=== PATIENT | male | born 1950 | race Caucasian/White ===

== ENCOUNTER 2021-01-06 18:34 | Emergency (ER) | payer MEDICARE ==
[~2021-01-06] VITALS: Ht 182.9 cm; Wt 99.8 kg
== END 2021-01-06 20:24 | disposition home or self-care (01) ==
LOC: ER 18:34
DX: U07.1 COVID-19 (principal)
CPT/HCPCS: 96372; 99282-25; J1885

== ENCOUNTER 2021-01-08 11:43 | Emergency (ER) | payer MEDICARE ==
[~2021-01-08] VITALS: Ht 182.9 cm; Wt 99.8 kg
[2021-01-08] MEDS ORDERED: DEXA6 PO (13:22)
== END 2021-01-08 13:41 | disposition home or self-care (01) ==
LOC: ER 11:43
DX: U07.1 COVID-19 (principal)
CPT/HCPCS: 99282

== ENCOUNTER 2021-01-10 15:36 | Inpatient (IN) | payer MEDICARE ==
[~2021-01-10] VITALS: Ht 182.9 cm; Wt 86.2 kg
[~2021-01-10 15:36] MED LIST changes: -Lisinopril-Hct1 EAC4 PO
[2021-01-10 16:57] LABS: BASOPHILS ABSOLUTE AUTO 0.02 K/mm3 (0.00-0.23); BASOPHILS PERCENT AUTO 0 % (0-2); EOSINOPHILS PERCENT AUTO 0 % (0-6); Hematocrit 42.4 % (37.0-53.0); Hemoglobin 14.7 g/dL (13.5-17.5); IMMATURE GRAN ABSOLUTE AUTO 0.23 K/mm3 (0.00-0.10); IMMATURE GRAN PERCENT AUTO 2 % (0-1); LYMPHOCYTES ABSOLUTE AUTO 0.44 K/mm3 (0.84-5.20); LYMPHOCYTES PERCENT AUTO 3 % (21-46); MONOCYTES PERCENT AUTO 2 % (4-13); Mean Corpuscular HGB 31.7 pg (26.0-34.0); Mean Corpuscular HGB Conc 34.7 g/dL (31.5-36.5); Mean Corpuscular Volume 91 fL (80-100); Mean Platelet Volume 11.2 fL (9.1-12.4); NEUTROPHILS ABSOLUTE AUTO 13.37 K/mm3 (1.96-9.15); NEUTROPHILS PERCENT AUTO 93 % (41-73); Platelet Count 312 K/mm3 (150-400); RDW Coefficient Variation 12.2 % (11.7-14.2); RDW Standard Deviation 40.8 fL (35.1-46.3); Red Blood Cell Count 4.64 M/mm3 (4.30-5.90); White Blood Cell Count 14.36 K/mm3 (4.00-11.30)
[2021-01-10 17:11] LABS: International Normalized Ratio 1.05; Prothrombin Time Results 11.3 Sec (9.7-11.5)
[2021-01-10 17:14] LABS: Alanine Aminotransfer (ALT/SGP 64 U/L (12-78); Albumin, Blood 3.4 g/dL (3.4-5.0); Albumin/Globulin Ratio 0.8 (0.8-1.8); Alk Phos 66 U/L (50-136); Anion Gap 7 mmol/L (6-16); Aspartate Aminotrans (AST/SGOT 38 U/L (12-37); Bilirubin, Total 0.7 mg/dL (0.1-1.0); Blood Urea Nitrogen 37 mg/dL (8-24); Bun/Creatinine Ratio 36.6 (12.0-20.0); CO2, Blood 26 mmol/L (21-32); Calcium, Blood 9.4 mg/dL (8.5-10.1); Chloride, Blood 102 mmol/L (98-108); Creatinine, Blood 1.01 mg/dL (0.60-1.20); Glomerular Filtration Rate >60 (60-); Glucose, Blood 145 mg/dL (70-99); Sodium, Blood 135 mmol/L (136-145); Total Protein, Blood 7.4 g/dL (6.4-8.2); Troponin I <0.015 ng/mL (0.000-0.040)
[2021-01-10 17:26] LABS: BAND PERCENT MAN 100 % (0-8); BASOPHILS PERCENT MAN 0 % (0-2); EOSINOPHILS PERCENT MAN 0 % (0-6); MONOCYTES PERCENT MAN 0 % (4-13); NEUTROPHILS ABSOLUTE MAN 14.36 K/mm3 (1.96-9.15); TOTAL CELLS COUNTED 1
[2021-01-10] MEDS ORDERED: Lisinopril-Hct1 EAC4 PO (18:35)
[2021-01-10 21:42] LABS: Ferritin, Serum 3453 ng/mL (26-388)
--- NOTE | 2021-01-11 06:41 | NUR ---
Pt admitted for COVID at approx 0030, pt is on 6L O2 via NC. VSS, denies pain, calls appropriatly
--- NOTE | 2021-01-11 18:08 | NUR ---
SHIFT SUMMARY PT REQUIRING INCREASED OXYGEN. MAINTAINING SATURATIONS IN LOW 90S. ENCOURAGED TO SWITCH POSITIONS IN BED EVERY 2 HOURS TOLERATED. NO COMPLAINTS OF PAIN. ALERT AND ORIENTED AND ABLE TO MAKE NEEDS KNOWN. AMBULATES IN ROOM INDEPENDENTLY.
--- NOTE | 2021-01-12 03:54 | NUR ---
transfer report from Kourtney Bishop on 70 year old MAle admitted yesterday with covid 19 pneumonia hypoxia. on nonrebreather for hypoxia. Tolerating clear liquids per report. Special droplet contact isolation for covid 19.
--- NOTE | 2021-01-12 04:14 | NUR ---
CHANGE OF HAND REPORT: AOX3, ILL APPEARING. DYPNEIC WITH SLIGHT MOVEMENT. NR AT 13 LITERS TO START NOW IS MAXED OUT. HAS TO REMAIN PRONE OR ON SIDE TO KEEP SATS AT 89-91%. COUGH WITH OCCATIONAL PRODUCTION. LS CRACKLES AND RALES IN THE BASES. IV ABX STARTED PER ORDERS. BODY ACHES. ABLE TO USE URINAL AT BEDSIDE WITH MILD DESATS, RECOVERS IN 1-2 MINUTES. REPORT GIVEN TO TRICIA ADLER WHO WILL BE TAKING OVER CARE.
[2021-01-12 05:27] LABS: BASOPHILS ABSOLUTE AUTO 0.05 K/mm3 (0.00-0.23); BASOPHILS PERCENT AUTO 0 % (0-2); EOSINOPHILS PERCENT AUTO 0 % (0-6); Hematocrit 45.2 % (37.0-53.0); Hemoglobin 15.3 g/dL (13.5-17.5); IMMATURE GRAN ABSOLUTE AUTO 0.51 K/mm3 (0.00-0.10); IMMATURE GRAN PERCENT AUTO 3 % (0-1); LYMPHOCYTES ABSOLUTE AUTO 0.75 K/mm3 (0.84-5.20); LYMPHOCYTES PERCENT AUTO 4 % (21-46); MONOCYTES ABSOLUTE AUTO 0.31 K/mm3 (0.16-1.47); MONOCYTES PERCENT AUTO 2 % (4-13); Mean Corpuscular HGB 31.2 pg (26.0-34.0); Mean Corpuscular HGB Conc 33.8 g/dL (31.5-36.5); Mean Corpuscular Volume 92 fL (80-100); Mean Platelet Volume 10.7 fL (9.1-12.4); NEUTROPHILS ABSOLUTE AUTO 15.69 K/mm3 (1.96-9.15); NEUTROPHILS PERCENT AUTO 91 % (41-73); Platelet Count 338 K/mm3 (150-400); RDW Coefficient Variation 12.3 % (11.7-14.2); RDW Standard Deviation 41.7 fL (35.1-46.3); Red Blood Cell Count 4.91 M/mm3 (4.30-5.90); White Blood Cell Count 17.31 K/mm3 (4.00-11.30)
[2021-01-12 06:25] LABS: Alanine Aminotransfer (ALT/SGP 54 U/L (12-78); Albumin, Blood 2.9 g/dL (3.4-5.0); Albumin/Globulin Ratio 0.7 (0.8-1.8); Alk Phos 70 U/L (50-136); Anion Gap 6 mmol/L (6-16); Aspartate Aminotrans (AST/SGOT 28 U/L (12-37); Bilirubin, Total 0.8 mg/dL (0.1-1.0); Blood Urea Nitrogen 32 mg/dL (8-24); Bun/Creatinine Ratio 34.2 (12.0-20.0); CO2, Blood 26 mmol/L (21-32); Calcium, Blood 9.4 mg/dL (8.5-10.1); Chloride, Blood 106 mmol/L (98-108); Creatinine, Blood 0.94 mg/dL (0.60-1.20); Globulin, Blood 4.2 g/dL (2.2-4.0); Glomerular Filtration Rate >60 (60-); Glucose, Blood 99 mg/dL (70-99); Potassium, Blood 4.1 mmol/L (3.5-5.5); Sodium, Blood 138 mmol/L (136-145); Total Protein, Blood 7.1 g/dL (6.4-8.2)
--- NOTE | 2021-01-12 06:40 | NUR ---
PT with covid 19 admitted for hypoxia, covid 19 care. PT on 15l oximizer & he had epitaxis, humidity applied with helpful effect. has covid 19 & is in room 327.
--- NOTE | 2021-01-12 19:09 | NUR ---
PATIENT IS ALERT AND ORIENTED. ON AIRVO 50L 60% FI02. PATIENT TOLERATES PRONING. PATIENT CALLS APPROPRIATELY. REPORT GIVEN TO ONCOMING RN.
--- NOTE | 2021-01-13 02:46 | NUR ---
70 year old Male with Covid 19 continues to need airvo heated high flow oxygen to get sats greater than 90%. He is currently prone positioning to increase oxygenation. He is on remdesiver IV & had steroid. Has boixx and sats 85 to 92%. Full code status, also has been hospitalized with covid 19 with covid pneumonia. Had nosebleed recently none this shift. Medicated for gen pain with helpful effect.
--- NOTE | 2021-01-13 04:09 | NUR ---
PT with covid 19 desatting at rest on airvo, nonrebreather added by RT Tye.current sats 90% via bioxx with airvo and nonrebreather.
[2021-01-13 05:25] LABS: BASOPHILS ABSOLUTE AUTO 0.04 K/mm3 (0.00-0.23); BASOPHILS PERCENT AUTO 0 % (0-2); EOSINOPHILS ABSOLUTE AUTO 0.02 K/mm3 (0.00-0.68); EOSINOPHILS PERCENT AUTO 0 % (0-6); Hematocrit 40.3 % (37.0-53.0); Hemoglobin 14.1 g/dL (13.5-17.5); IMMATURE GRAN ABSOLUTE AUTO 0.52 K/mm3 (0.00-0.10); IMMATURE GRAN PERCENT AUTO 4 % (0-1); LYMPHOCYTES PERCENT AUTO 4 % (21-46); MONOCYTES ABSOLUTE AUTO 0.29 K/mm3 (0.16-1.47); MONOCYTES PERCENT AUTO 2 % (4-13); Mean Corpuscular HGB 31.6 pg (26.0-34.0); Mean Corpuscular Volume 90 fL (80-100); Mean Platelet Volume 11.1 fL (9.1-12.4); NEUTROPHILS PERCENT AUTO 89 % (41-73); Platelet Count 307 K/mm3 (150-400); Red Blood Cell Count 4.46 M/mm3 (4.30-5.90); White Blood Cell Count 12.47 K/mm3 (4.00-11.30)
[2021-01-13 05:46] LABS: Anion Gap 5 mmol/L (6-16); Blood Urea Nitrogen 21 mg/dL (8-24); Bun/Creatinine Ratio 30.3 (12.0-20.0); CO2, Blood 26 mmol/L (21-32); Chloride, Blood 107 mmol/L (98-108); Creatinine, Blood 0.69 mg/dL (0.60-1.20); Glomerular Filtration Rate >60 (60-); Glucose, Blood 113 mg/dL (70-99); Sodium, Blood 138 mmol/L (136-145)
--- NOTE | 2021-01-13 19:29 | NUR ---
SHIFT SUMMARY: PT A/O X 3. PT IS NOW ON AIRVO 60 LPM FIO2 85%. NON REBREATHER MASK REMOVED AND SATS ARE IN THE LOW 90'S. NO ACUTE CHANGES THIS SHIFT.
--- NOTE | 2021-01-14 04:23 | NUR ---
SHIFT SUMMARY NO ACUTE CHANGES TO REPORT THIS SHIFT, PT HAS RESTED MOST OF THE NIGHT. PT REMAINS ON HEATED ON HIGH FLOW WITH NONREBREATHER. SETTINGS PER RT, SATS IN THE 90'S. SOB WITH EXERTION AND SOME AT REST. PT WITH PRODUCTIVE COUGH, MEDICATED PER EMAR. PT A/OX4, INDEPENDENT IN THE ROOM. BED IN LOWEST POSITION, CALL LIGHT WITHIN REACH.
[2021-01-14 06:22] LABS: BASOPHILS ABSOLUTE AUTO 0.07 K/mm3 (0.00-0.23); BASOPHILS PERCENT AUTO 0 % (0-2); EOSINOPHILS ABSOLUTE AUTO 0.06 K/mm3 (0.00-0.68); EOSINOPHILS PERCENT AUTO 0 % (0-6); Hematocrit 40.8 % (37.0-53.0); Hemoglobin 14.1 g/dL (13.5-17.5); IMMATURE GRAN PERCENT AUTO 5 % (0-1); LYMPHOCYTES ABSOLUTE AUTO 0.62 K/mm3 (0.84-5.20); LYMPHOCYTES PERCENT AUTO 4 % (21-46); MONOCYTES ABSOLUTE AUTO 0.35 K/mm3 (0.16-1.47); MONOCYTES PERCENT AUTO 2 % (4-13); Mean Corpuscular HGB 31.5 pg (26.0-34.0); Mean Corpuscular HGB Conc 34.6 g/dL (31.5-36.5); Mean Corpuscular Volume 91 fL (80-100); Mean Platelet Volume 10.8 fL (9.1-12.4); NEUTROPHILS ABSOLUTE AUTO 14.56 K/mm3 (1.96-9.15); NEUTROPHILS PERCENT AUTO 88 % (41-73); Platelet Count 331 K/mm3 (150-400); RDW Coefficient Variation 12.1 % (11.7-14.2); RDW Standard Deviation 40.6 fL (35.1-46.3); Red Blood Cell Count 4.48 M/mm3 (4.30-5.90); White Blood Cell Count 16.56 K/mm3 (4.00-11.30)
[2021-01-14 06:40] LABS: Alanine Aminotransfer (ALT/SGP 43 U/L (12-78); Albumin, Blood 2.3 g/dL (3.4-5.0); Albumin/Globulin Ratio 0.6 (0.8-1.8); Alk Phos 87 U/L (50-136); Anion Gap 4 mmol/L (6-16); Aspartate Aminotrans (AST/SGOT 31 U/L (12-37); Bilirubin, Total 0.7 mg/dL (0.1-1.0); Blood Urea Nitrogen 21 mg/dL (8-24); Bun/Creatinine Ratio 31.7 (12.0-20.0); CO2, Blood 24 mmol/L (21-32); Calcium, Blood 9.1 mg/dL (8.5-10.1); Chloride, Blood 110 mmol/L (98-108); Creatinine, Blood 0.66 mg/dL (0.60-1.20); Globulin, Blood 3.7 g/dL (2.2-4.0); Glomerular Filtration Rate >60 (60-); Glucose, Blood 101 mg/dL (70-99); Potassium, Blood 4.7 mmol/L (3.5-5.5); Sodium, Blood 138 mmol/L (136-145)
--- NOTE | 2021-01-14 07:32 | NUR ---
PT NON REBREATHER REMOVED AND AIRVO TURNED UP TO 50 LPM/85% FIO2. PT SATS ARE 91-93% AND MAINTAINING. PT JAMEL WELL AT THIS TIME.
[2021-01-14 12:19] LABS: Source, Urine Clean Catch
[2021-01-14 12:22] LABS: Appearance, Urine Clear (Clear); Bilirubin, Urine Neg (Neg); Blood, Urine Neg (Neg); Color, Urine Yellow (P-Yellow); Glucose Qualitative, Urine Neg (Neg); Ketones, Urine Neg (Neg); Leukocyte Esterase, Urine Neg (Neg); Nitrite, Urine Neg (Neg); Protein, Urine 1+ (Neg); Specific Gravity, Urine 1.015 (1.003-1.022); Urobilinogen, Urine 1+ (Normal)
--- NOTE | 2021-01-14 18:22 | NUR ---
SHIFT SUMMARY: PT A/O X3, GEN WEAKNESS. USES URINAL AT BEDSIDE. PT HAS VERY POOR APPETITE. CONTINUES TO BE ON AIRVO AT 50 LPM 85% FIO2 WITH SATS B/W 86-94%. PT HAS PRODUCTIVE COUGH. PT EDUCATED ON INCENTIVE SPIROMETER. PT VU. PT MOVED TO ROOM 308-2 AND IS IN SAME ROOM .
--- NOTE | 2021-01-15 05:31 | NUR ---
SHIFT SUMMARY PT PLACED BACK ON NON REBREATHER OVERNIGHT, PER PT REQUEST. PT REPORTS DIFFICULT TIME BREATHING. SATS REMAIN IN THE LOW 90'S OVERNIGHT. BREATHING IS LABORED AT REST AND WITH EXERTION. PT HAS AMBULATED INDEPENDENTLY TO THE BSC. A/OX4, MAKES NEEDS KNOWN. BED IN LOWEST POSITION, CALL LIGHT WITHIN REACH.
--- NOTE | 2021-01-15 05:53 | NUR ---
PT ON AIRVO WITH NON REBREATHER PT IS MAINTAINING SATS IN THE LOW 90'S BUT BREATHING IS LABORED, AND PT UNABLE TO SLEEP THIS AM. RESPIRATORY CALLED AND NOTIFIED OF THIS. THEY WILL BE BY TO EVALUATE CURRENT O2 SETTINGS.
--- NOTE | 2021-01-15 07:00 | NUR ---
NURSE CALLED TO ASSESS PT, PT NOW ON 60 L, 75% FIO2 ON AIRVO2 AND 10 L NRB SATS 95%. PT CURRENTLY ON PRONE POSITION AND JAMEL WELL.
--- NOTE | 2021-01-15 10:21 | NUR ---
REPORT FROM [facility]CRO[facility]Y BLOOD CULTURES + FOR GRAM POSITIVE COCCI. MD TO BE NOTIFIED.
[2021-01-15 10:42] LABS: BASOPHILS ABSOLUTE AUTO 0.09 K/mm3 (0.00-0.23); BASOPHILS PERCENT AUTO 1 % (0-2); EOSINOPHILS ABSOLUTE AUTO 0.15 K/mm3 (0.00-0.68); EOSINOPHILS PERCENT AUTO 1 % (0-6); Hemoglobin 14.2 g/dL (13.5-17.5); IMMATURE GRAN ABSOLUTE AUTO 1.16 K/mm3 (0.00-0.10); IMMATURE GRAN PERCENT AUTO 6 % (0-1); LYMPHOCYTES ABSOLUTE AUTO 0.43 K/mm3 (0.84-5.20); LYMPHOCYTES PERCENT AUTO 2 % (21-46); MONOCYTES ABSOLUTE AUTO 0.48 K/mm3 (0.16-1.47); MONOCYTES PERCENT AUTO 3 % (4-13); Mean Corpuscular HGB Conc 33.8 g/dL (31.5-36.5); Mean Corpuscular Volume 92 fL (80-100); Mean Platelet Volume 10.7 fL (9.1-12.4); NEUTROPHILS ABSOLUTE AUTO 15.95 K/mm3 (1.96-9.15); NEUTROPHILS PERCENT AUTO 87 % (41-73); Platelet Count 332 K/mm3 (150-400); RDW Coefficient Variation 12.3 % (11.7-14.2); RDW Standard Deviation 41.4 fL (35.1-46.3); Red Blood Cell Count 4.58 M/mm3 (4.30-5.90); White Blood Cell Count 18.26 K/mm3 (4.00-11.30)
[2021-01-15 11:21] LABS: Alanine Aminotransfer (ALT/SGP 51 U/L (12-78); Albumin, Blood 2.3 g/dL (3.4-5.0); Albumin/Globulin Ratio 0.6 (0.8-1.8); Alk Phos 119 U/L (50-136); Anion Gap 5 mmol/L (6-16); Aspartate Aminotrans (AST/SGOT 41 U/L (12-37); Bilirubin, Total 0.9 mg/dL (0.1-1.0); Blood Urea Nitrogen 24 mg/dL (8-24); Bun/Creatinine Ratio 32.7 (12.0-20.0); CO2, Blood 22 mmol/L (21-32); Chloride, Blood 109 mmol/L (98-108); Creatinine, Blood 0.73 mg/dL (0.60-1.20); Globulin, Blood 3.8 g/dL (2.2-4.0); Glomerular Filtration Rate >60 (60-); Glucose, Blood 116 mg/dL (70-99); Potassium, Blood 4.7 mmol/L (3.5-5.5); Sodium, Blood 136 mmol/L (136-145); Total Protein, Blood 6.1 g/dL (6.4-8.2)
--- NOTE | 2021-01-15 19:31 | NUR ---
SHIFT SUMMARY: PT A/O X 3, ON BEDREST AND USES URINAL AT BEDSIDE DUE TO LINES, O2 TUBING. PT CALLS APPROP. PT MAINTAINED ON AIRVO AND NON REBREATHER TODAY AND SATS RANGED BETWEEN 86-92%. PT CT NEGATIVE FOR EMBOLISM. PT FEBRILE TODAY AND TYLENOL EFFECTIVE IN TREATING FEVER. ORAL INTAKE IS MINIMAL, DRINKING ENSURES AT THIS TIME.
--- NOTE | 2021-01-15 22:41 | NUR ---
ASSUMPTION OF CARE 194: PT IS LYING IN BED, WATCHING FOOTBALL GAME ON TV. HUMIDIFIED AIR THROUGH HI-ALEKSANDR NASAL CANULA AT 60%, FiO2 92%, NON-REBREATHER MASK AT 15 LPM. POWERGLIDE IN NIDA, INFUSING. CT SCAN SHOWS TRACE BILAT PLEURAL EFFUSIONS. PT USES URINAL TO VOID INDEPENDENTLY. LUNG SOUNDS ARE COARSE ON EXHALATION. HE IS SATING 90%. DENIES PAIN OR DISCOMFORT. BED IN LOWEST POSITION, CALL LIGHT WITHIN REACH. WILL CONTINUE TO MONITOR.
--- NOTE | 2021-01-16 05:10 | NUR ---
SHIFT SUMMARRY PATIENT REMAINS ALERT AND ORIENTED. CONTINUES O2 ON ON 60L AIRVO AND 15L NONREBREATHER. O2 SATS MAINTAINED IN THE LOW 90S WITH OCCASSIONAL DESAT INTO THMID 80S. REPOSITIONING TO THE SIDES IMPROVES THE O2 SATS LEVELS. VOIDING MODERATE AMOUNTS OF YELLOW URINE IN URINAL. FAILED bm ATTEMPT IN BEDPAN STATING IT TURNS OUT TO BE GAS ONLY. NO ACUTE MEDICAL DISTRESS RTHIS SHIFT.
[2021-01-16 05:42] LABS: Hematocrit 42.5 % (37.0-53.0); Hemoglobin 14.5 g/dL (13.5-17.5); Mean Corpuscular HGB 31.5 pg (26.0-34.0); Mean Corpuscular HGB Conc 34.1 g/dL (31.5-36.5); Mean Corpuscular Volume 92 fL (80-100); Mean Platelet Volume 10.9 fL (9.1-12.4); Platelet Count 309 K/mm3 (150-400); RDW Coefficient Variation 12.1 % (11.7-14.2); RDW Standard Deviation 41.4 fL (35.1-46.3); White Blood Cell Count 18.95 K/mm3 (4.00-11.30)
[2021-01-16 06:13] LABS: BAND PERCENT MAN 1 % (0-8); BASOPHILS PERCENT MAN 0 % (0-2); EOSINOPHILS ABSOLUTE MAN 0.18 K/mm3 (0.00-0.68); EOSINOPHILS PERCENT MAN 1 % (0-6); LYMPHOCYTES ABSOLUTE MAN 0.56 K/mm3 (0.84-5.20); LYMPHOCYTES PERCENT MAN 3 % (21-46); MONOCYTES PERCENT MAN 0 % (4-13); MYELOCYTE ABSOLUTE MAN 0.37 K/mm3 (0.00-0.00); MYELOCYTE PERCENT MAN 2 % (0-0); NEUTROPHILS ABSOLUTE MAN 17.81 K/mm3 (1.96-9.15); SEG NEUTROPHILS PERCENT MAN 93 % (41-73); TOTAL CELLS COUNTED 100
[2021-01-16 06:27] LABS: Alanine Aminotransfer (ALT/SGP 48 U/L (12-78); Albumin, Blood 2.2 g/dL (3.4-5.0); Albumin/Globulin Ratio 0.6 (0.8-1.8); Alk Phos 137 U/L (50-136); Anion Gap 6 mmol/L (6-16); Aspartate Aminotrans (AST/SGOT 34 U/L (12-37); Bilirubin, Total 0.9 mg/dL (0.1-1.0); Blood Urea Nitrogen 22 mg/dL (8-24); Bun/Creatinine Ratio 30.3 (12.0-20.0); CO2, Blood 22 mmol/L (21-32); Calcium, Blood 8.8 mg/dL (8.5-10.1); Chloride, Blood 108 mmol/L (98-108); Creatinine, Blood 0.73 mg/dL (0.60-1.20); Glomerular Filtration Rate >60 (60-); Glucose, Blood 96 mg/dL (70-99); Potassium, Blood 4.6 mmol/L (3.5-5.5); Sodium, Blood 136 mmol/L (136-145); Total Protein, Blood 6.2 g/dL (6.4-8.2)
--- NOTE | 2021-01-16 16:23 | NUR ---
PT IS UNABLE TO PRONE, DOES BETTER WHEN HE IS ON HIS SIDE. ABLE TO MAINTAIN HIGH 80'S TO LOW 90'S O2. PT HAS BEEN ENCOURAGED TO DRINK NUTRITION EATING DESATS HIM TOO QUICKLY. PT ALERT AND ABLE TO EXPRESS ANY NEEDS. NO PAIN OR DISTRESS NOTED. CALL LIGHT WITHIN REACH. WCM.
[2021-01-17 05:16] LABS: Hematocrit 43.8 % (37.0-53.0); Hemoglobin 14.9 g/dL (13.5-17.5); Mean Corpuscular HGB 31.4 pg (26.0-34.0); Mean Corpuscular Volume 92 fL (80-100); Mean Platelet Volume 10.7 fL (9.1-12.4); Platelet Count 250 K/mm3 (150-400); RDW Standard Deviation 41.1 fL (35.1-46.3); Red Blood Cell Count 4.75 M/mm3 (4.30-5.90); White Blood Cell Count 28.08 K/mm3 (4.00-11.30)
[2021-01-17 05:36] LABS: BAND PERCENT MAN 6 % (0-8); BASOPHILS PERCENT MAN 0 % (0-2); EOSINOPHILS ABSOLUTE MAN 0.28 K/mm3 (0.00-0.68); EOSINOPHILS PERCENT MAN 1 % (0-6); LYMPHOCYTES ABSOLUTE MAN 0.56 K/mm3 (0.84-5.20); LYMPHOCYTES PERCENT MAN 2 % (21-46); MONOCYTES ABSOLUTE MAN 0.28 K/mm3 (0.16-1.47); MONOCYTES PERCENT MAN 1 % (4-13); MYELOCYTE ABSOLUTE MAN 0.56 K/mm3 (0.00-0.00); MYELOCYTE PERCENT MAN 2 % (0-0); NEUTROPHILS ABSOLUTE MAN 26.39 K/mm3 (1.96-9.15); SEG NEUTROPHILS PERCENT MAN 88 % (41-73); TOTAL CELLS COUNTED 100
[2021-01-17 05:46] LABS: Alanine Aminotransfer (ALT/SGP 35 U/L (12-78); Albumin, Blood 2.2 g/dL (3.4-5.0); Albumin/Globulin Ratio 0.5 (0.8-1.8); Alk Phos 184 U/L (50-136); Anion Gap 8 mmol/L (6-16); Aspartate Aminotrans (AST/SGOT 42 U/L (12-37); Bilirubin, Total 1.1 mg/dL (0.1-1.0); Blood Urea Nitrogen 20 mg/dL (8-24); Bun/Creatinine Ratio 28.6 (12.0-20.0); CO2, Blood 24 mmol/L (21-32); Calcium, Blood 9.4 mg/dL (8.5-10.1); Chloride, Blood 104 mmol/L (98-108); Globulin, Blood 4.3 g/dL (2.2-4.0); Glomerular Filtration Rate >60 (60-); Glucose, Blood 102 mg/dL (70-99); Potassium, Blood 4.7 mmol/L (3.5-5.5); Sodium, Blood 136 mmol/L (136-145); Total Protein, Blood 6.5 g/dL (6.4-8.2)
--- NOTE | 2021-01-17 07:17 | NUR ---
PATIENT HAD MULTIPLE EPISODES OF DESATTING IN 80S WITH SLOW RECOVERY BACK INTO THE 90S. O2SATS DROPPED IN TO THE THIS MORNING. RT NOTIFIED . BIPAP ORDERED AND IN USE. O2 SAT AT 90% ON BIPAP AT 100% OXYGEN WITH PATIENT IN PRONE POSITION.
[2021-01-17 08:28] LABS: PCO2 Arterial 32.8 mmHg (35-45); PO2 Arterial 53.2 mmHg (80-100); pH Blood Arterial 7.49 (7.35-7.45)
--- NOTE | 2021-01-17 10:14 | NUR ---
0855 TO PRESENT: PT EMERGENTLY TRANSFERED TO ICU FOR RESPIRATORY DISTRESS (COVID+) PO2-50'S PER ABG DRAWN JUST PRIOR TO TRANSPORT TO ICU. PT ARRIVES TO ICU IN PRONE POSITION-SATS64% ON BIPAP. PT IS TACHYPNEIC-SKIN MOTTLED. HR 130'S SINUS TACHYCARDIA. DR. SNOW SUMMED TO BEDSIDE FOR CRITICAL CARE CONSULTATION. PT ROBERTA NOTIFIED AND VERBAL CONSENT GIVEN FOR EMERGENT ETT AND CENTRAL LINE PLACEMENT @ 0900.0905: #18 PIV STARTED TO LEFT WRIST-NS @ 100 CC/HR INITIATED PER V.O. DR. SNOW @ 0913. 0915: PT MED WITH 120 MG OF PROPOFOL BY DR. SNOW FOR RSI. 0916: PT MED WITH ROCURONIUM 50 MG IVP X 1 FOR RSI. 0917: 8.0 ETT PLACED/ 26 @ LIP-GOOD COLOR CHANGE ON CO2 DETECTOR, AND BILATERAL LUNG SOUNDS AUSCULTATED, BUT SATS TO 30% 0930: PROPOFOL DRIP INITIATED @ 20 MCG/KG/HR AND BILATERAL SOFT WRIST RESTRAINTS PLACED TO PREVENT ACCIDENTAL EXTUBATION. 0932: PT BOLUSED WITH ADDITIONAL [address]P [address]. SNOW, AND PROPOFOL DRIP INCREASED TO 50 MCG/KG/MIN. 0935: PT ASYNCHRONOUS WITH THE VENT-MED WITH ATIVAN 2 MG IVP X 1. SATS TRENDING 88-90% ON AC/VC 24, 450, PEEP 20, FIO2 100% 1000: RIJ QUAD LUMEN CENTRAL LINE PLACED. #18 FR OGT PLACED. STAT CXR ORDERED ETT, OGT, AND RIJ PLACEMENT ADEQUATE PER DR. SNOW. #16 FR SHABAZZ PLACED AND U/A SENT PER SHABAZZ INSERTION PROTOCOL.
[2021-01-17 10:34] LABS: Source, Urine Catheter
[2021-01-17 10:56] LABS: Appearance, Urine Clear (Clear); Bilirubin, Urine Neg (Neg); Blood, Urine 1+ (Neg); Color, Urine Yellow (P-Yellow); Glucose Qualitative, Urine Neg (Neg); Ketones, Urine 1+ (Neg); Leukocyte Esterase, Urine Neg (Neg); Nitrite, Urine Neg (Neg); Protein, Urine 2+ (Neg); Specific Gravity, Urine 1.025 (1.003-1.022); Urobilinogen, Urine NORM (Normal)
[2021-01-17 11:36] LABS: Amorphous Light (0-Heavy); Bacteria Few /hpf; Squamous Epithelial Cells Few /hpf (Few); White Blood Cells, Urine 0-2 /hpf (0-5)
--- NOTE | 2021-01-17 18:59 | NUR ---
SHIFT SUMMARY PT DOING WELL SINCE MOVE TO ICU AND INTUBATION. VENT SETTINGS AC/VC 24/450/18/85, SATS >92%. SR 80S. SBP 87, MAP >65. PT HAS CL TO RIGHT IJ WITH LEVO INF @ 7MCG, PROPOFOL INF @ 60MCG, NIMBEX INF @ 2MCG. SITE WNL, DRESSING C/D/I. POWERGLIDE TO NIDA, SITE WNL, DRESSING C/E/I. 18G TO LEFT WRIST, SL, SITE WNL, DRESSING C/D/I. SHABAZZ DRAINING CLOUDY DARK YELLOW URINE. SKIN PALE, OFTEN DIAPHORETIC. ABD SOFT AND NONTENDER. OG SECURE AND CLAMPED. BILATERAL SOFT WRIST RESTRAINTS SECURE. BIS MONITORING 40-60. TRAIN OF 4 OF 4. EXT FLOATED, HEEL PROTECTORS IN PLACE. WILL REPORT TO ONCOMING SHIFT.
[2021-01-18 04:05] LABS: Hematocrit 41.3 % (37.0-53.0); Hemoglobin 13.1 g/dL (13.5-17.5); Mean Corpuscular HGB Conc 31.7 g/dL (31.5-36.5); Mean Platelet Volume 10.9 fL (9.1-12.4); Platelet Count 264 K/mm3 (150-400); RDW Coefficient Variation 12.5 % (11.7-14.2); RDW Standard Deviation 44.7 fL (35.1-46.3); Red Blood Cell Count 4.23 M/mm3 (4.30-5.90); White Blood Cell Count 33.94 K/mm3 (4.00-11.30)
[2021-01-18 04:42] LABS: Alanine Aminotransfer (ALT/SGP 27 U/L (12-78); Albumin, Blood 1.6 g/dL (3.4-5.0); Albumin/Globulin Ratio 0.4 (0.8-1.8); Alk Phos 108 U/L (50-136); Anion Gap 3 mmol/L (6-16); Aspartate Aminotrans (AST/SGOT 24 U/L (12-37); Bilirubin, Total 0.4 mg/dL (0.1-1.0); Blood Urea Nitrogen 20 mg/dL (8-24); Bun/Creatinine Ratio 25.7 (12.0-20.0); CO2, Blood 28 mmol/L (21-32); Calcium, Blood 8.6 mg/dL (8.5-10.1); Chloride, Blood 108 mmol/L (98-108); Creatinine, Blood 0.78 mg/dL (0.60-1.20); Globulin, Blood 4.3 g/dL (2.2-4.0); Glomerular Filtration Rate >60 (60-); Glucose, Blood 149 mg/dL (70-99); Potassium, Blood 4.9 mmol/L (3.5-5.5); Sodium, Blood 139 mmol/L (136-145); Total Protein, Blood 5.9 g/dL (6.4-8.2)
[2021-01-18 04:43] LABS: C-REACTIVE PROTEIN, EXT RANGE >19.000 mg/dL (0.000-0.300); Mean Corpuscular Volume 98 fL (80-100)
[2021-01-18 05:23] LABS: BAND PERCENT MAN 3 % (0-8); BASOPHILS PERCENT MAN 0 % (0-2); EOSINOPHILS PERCENT MAN 0 % (0-6); METAMYELOCYTE ABSOLUTE MAN 0.67 K/mm3 (0.00-0.00); METAMYELOCYTE PERCENT MAN 2 % (0-0); MONOCYTES ABSOLUTE MAN 1.01 K/mm3 (0.16-1.47); MONOCYTES PERCENT MAN 3 % (4-13); MYELOCYTE ABSOLUTE MAN 1.01 K/mm3 (0.00-0.00); MYELOCYTE PERCENT MAN 3 % (0-0); NEUTROPHILS ABSOLUTE MAN 31.22 K/mm3 (1.96-9.15); SEG NEUTROPHILS PERCENT MAN 89 % (41-73); TOTAL CELLS COUNTED 100
[2021-01-18 05:50] LABS: PCO2 Arterial 60.6 mmHg (35-45); PO2 Arterial 102 mmHg (80-100)
[2021-01-18 05:51] LABS: pH Blood Arterial 7.26 (7.35-7.45)
--- NOTE | 2021-01-18 06:34 | NUR ---
END OF SHIFT NIMBEX INCREASED DUE TO PT NOTED TO BE BREATHING OVER VENT- GTTS AND GTT RATES NOTED IN FLOWSHEET. CRITICAL PH REPORTED TO MD-RN SUGGEST INCREASE RATE- NO NEW ORDERS FROM MD. BAKERY PASTRY INTERNSHIP AWARE. PT REMAINS IN PRONE POSITION-PARALYZED/SEDATED/ON VENT SEE OVERNIGHT ASSESSMENTS IN FLOWSHEET.
--- NOTE | 2021-01-18 06:54 | NUR ---
BIS 45-60 OVERNIGHT
--- NOTE | 2021-01-18 13:22 | NUR ---
PT WAS SUPINE AT ABOUT 1200 SEDATION WEARN DOWN, TUBE FEEDING STARTED PER MD ORDERS. WILL CONTINUE TO MONITOR FOR SAFETY.
--- NOTE | 2021-01-18 18:55 | NUR ---
PT CONTINUE TO REMAIN ON THE VENT, PARLALYZED ON PROPFOL AND LEVO ON A LOW RATE WITH GOOD URINE OUTPUT. JAH WAS UPDATED WITH PLAN OF CARE.
[2021-01-19 03:50] LABS: Hemoglobin 12.1 g/dL (13.5-17.5); Mean Corpuscular HGB 31.1 pg (26.0-34.0); Mean Corpuscular Volume 100 fL (80-100); Mean Platelet Volume 11.2 fL (9.1-12.4); Platelet Count 211 K/mm3 (150-400); RDW Standard Deviation 48.2 fL (35.1-46.3); Red Blood Cell Count 3.89 M/mm3 (4.30-5.90); White Blood Cell Count 17.09 K/mm3 (4.00-11.30)
[2021-01-19 04:13] LABS: Albumin, Blood 1.4 g/dL (3.4-5.0); Anion Gap 1 mmol/L (6-16); Blood Urea Nitrogen 26 mg/dL (8-24); Bun/Creatinine Ratio 35.6 (12.0-20.0); CO2, Blood 29 mmol/L (21-32); Calcium, Blood 8.1 mg/dL (8.5-10.1); Chloride, Blood 109 mmol/L (98-108); Creatinine, Blood 0.73 mg/dL (0.60-1.20); Glomerular Filtration Rate >60 (60-); Glucose, Blood 172 mg/dL (70-99); Magnesium, Blood 3.1 mg/dL (1.6-2.4); Phosphorus, Blood 2.5 mg/dL (2.5-4.9); Potassium, Blood 5.1 mmol/L (3.5-5.5); Sodium, Blood 139 mmol/L (136-145)
[2021-01-19 04:49] LABS: BAND PERCENT MAN 1 % (0-8); BASOPHILS PERCENT MAN 0 % (0-2); EOSINOPHILS ABSOLUTE MAN 0.17 K/mm3 (0.00-0.68); EOSINOPHILS PERCENT MAN 1 % (0-6); LYMPHOCYTES ABSOLUTE MAN 0.17 K/mm3 (0.84-5.20); LYMPHOCYTES PERCENT MAN 1 % (21-46); MONOCYTES ABSOLUTE MAN 0.68 K/mm3 (0.16-1.47); MONOCYTES PERCENT MAN 4 % (4-13); NEUTROPHILS ABSOLUTE MAN 16.06 K/mm3 (1.96-9.15); SEG NEUTROPHILS PERCENT MAN 93 % (41-73); TOTAL CELLS COUNTED 100
--- NOTE | 2021-01-19 06:54 | NUR ---
END OF SHIFT SUMMARY: PATIENT HAD A GOOD NIGHT. HE WAS PRONED AT 1999 AND DID VERY WELL. VENT SETTINGS HAVE BEEN UNCHANGED BUT WE WERE ABLE TO COME DOWN TO 60% FROM 85% WITH HIS FI02. GOOD URINE OUTPUT. NO RESTAINTS ON PATIENT. REMAINS INTUBATED/SEDATED.
--- NOTE | 2021-01-19 22:41 | NUR ---
ASSUMED CARE AT 1900 PT LAYING IN BED INTUBATED WITH VENT SETTINGS AC 24, TV 450, PEEP 16, FIO2 70%; SCANT AMOUNT OF SECREATIONS FROM ETT. PT PARALIZED AND SEDATED; ROCURONIUM INFUSING AT 3MCG/KG/MIN, TOF 4/4; PROPOFOL INFUSING AT 40MCG/KG/MIN, BIS 40'S. AFEBRILE. HR 100'S. SBP 140'S. PIVOT INFUSING VIA OG AT GOAL. SHABAZZ IN PLACE AND DRAINING TO GRAVITY. SEE SHIFT ASSESSMENT FOR FULL ASSESSMENT.
--- NOTE | 2021-01-20 03:12 | NUR ---
UPDATE AT [address] MARCIAL REGARDING SBP 160-180'S; NEW ORDERS FOR HYDROLAZINE 10-20MG Q6HR PRN PROVIDED. TWO DOSES OF 10MG OF HYDROLAZINE GIVEN AND SBP CONT TO BE >160. DR MARTINEZ CALLED AT 0145 REGARDING SBP, NEW ORDERS PROVIDED FOR LABETALOL 10-20MG PRN Q6HR. 10MG OF LABETALOL GIVEN AND HELPFUL BRINGING SBP TO 120'S.
[2021-01-20 04:22] LABS: BASOPHILS ABSOLUTE AUTO 0.12 K/mm3 (0.00-0.23); BASOPHILS PERCENT AUTO 1 % (0-2); EOSINOPHILS ABSOLUTE AUTO 0.01 K/mm3 (0.00-0.68); EOSINOPHILS PERCENT AUTO 0 % (0-6); Hematocrit 42.6 % (37.0-53.0); Hemoglobin 12.8 g/dL (13.5-17.5); IMMATURE GRAN ABSOLUTE AUTO 1.66 K/mm3 (0.00-0.10); IMMATURE GRAN PERCENT AUTO 8 % (0-1); LYMPHOCYTES ABSOLUTE AUTO 0.46 K/mm3 (0.84-5.20); LYMPHOCYTES PERCENT AUTO 2 % (21-46); MONOCYTES ABSOLUTE AUTO 0.76 K/mm3 (0.16-1.47); MONOCYTES PERCENT AUTO 4 % (4-13); Mean Corpuscular Volume 103 fL (80-100); Mean Platelet Volume 11.1 fL (9.1-12.4); NEUTROPHILS ABSOLUTE AUTO 17.46 K/mm3 (1.96-9.15); NEUTROPHILS PERCENT AUTO 85 % (41-73); Platelet Count 225 K/mm3 (150-400); RDW Coefficient Variation 13.4 % (11.7-14.2); RDW Standard Deviation 51.5 fL (35.1-46.3); Red Blood Cell Count 4.13 M/mm3 (4.30-5.90); White Blood Cell Count 20.47 K/mm3 (4.00-11.30)
[2021-01-20 04:43] LABS: Albumin, Blood 1.6 g/dL (3.4-5.0); Anion Gap 2 mmol/L (6-16); Blood Urea Nitrogen 38 mg/dL (8-24); CO2, Blood 29 mmol/L (21-32); CPK Creatine Kinase 37 U/L (39-308); Chloride, Blood 109 mmol/L (98-108); Creatinine, Blood 0.75 mg/dL (0.60-1.20); Glomerular Filtration Rate >60 (60-); Glucose, Blood 228 mg/dL (70-99); Magnesium, Blood 3.2 mg/dL (1.6-2.4); Phosphorus, Blood 2.8 mg/dL (2.5-4.9); Potassium, Blood 5.2 mmol/L (3.5-5.5); Sodium, Blood 140 mmol/L (136-145)
[2021-01-20 04:46] LABS: BAND PERCENT MAN 4 % (0-8); BASOPHILS PERCENT MAN 0 % (0-2); EOSINOPHILS PERCENT MAN 0 % (0-6); LYMPHOCYTES PERCENT MAN 1 % (21-46); METAMYELOCYTE PERCENT MAN 2 % (0-0); MONOCYTES ABSOLUTE MAN 0.81 K/mm3 (0.16-1.47); MONOCYTES PERCENT MAN 4 % (4-13); MYELOCYTE PERCENT MAN 1 % (0-0); NEUTROPHILS ABSOLUTE MAN 18.83 K/mm3 (1.96-9.15); SEG NEUTROPHILS PERCENT MAN 88 % (41-73); TOTAL CELLS COUNTED 100
--- NOTE | 2021-01-20 06:12 | NUR ---
END OF SHIFT SUMMARY PT CONT TO BE INTUBATED WITH VENT SETTINGS AC 24, TV 450, PEEP 16, FIO2 70%; SCANT AMOUNT OF SECREATIONS FROM ETT. PT PARALIZED AND SEDATED; NIMBEX INFUSING AT 3MCG/KG/MIN, TOF 4/4; PROPOFOL INFUSING AT 40MCG/KG/MIN, BIS 40-50'S. HR 90-100. SBP 110-180, SEE PREVIOUS NOTE REGARDING HTN. PIVOT INFUSING VIA OG. RECTAL TUBE PLACED THIS SHIFT DUE TO LARGE LOOSE STOOL. SHABAZZ IN PLACE AND DRAINING TO GRAVITY. NS INFUSING AT 100ML/HR. RT IJ CENTRAL LINE DRESSING C/D/I. WILL REPORT TO AM RN WHEN AVAILABLE.
[2021-01-20 12:31] LABS: PCO2 Arterial 67.6 mmHg (35-45); PO2 Arterial 63.6 mmHg (80-100)
[2021-01-20 12:32] LABS: pH Blood Arterial 7.26 (7.35-7.45)
--- NOTE | 2021-01-20 22:29 | NUR ---
ASSUMED CARE AT 1900 PT LAYING IN BED INTUBATED WITH VENT SETTINGS AC 24/450/14/70%; SMALL AMOUNT OF ETT SECREATIONS. PT INTUBATED AND PARALIZED; NIMBEX TITRATED FROM 2 TO 3MCG/KG/MIN DUE TO FO2 4/4 AND HAVING A COUGH/GAG AND RR 30'S; PROPOFOL INFUSING AT 40MCG/KG/MIN, BIS 40'S. AFEBRILE. HR 80-90'S. SBP 140-150. PIVOT INFUSING AT GOAL VIA OG. RECTAL TUBE AND SHABAZZ IN PLACE AND DRAINING TO GRAVITY. RT IJ CENTRAL LINE DRESSING C/D/I. SEE SHIFT ASSESSMENT FOR FULL ASSESSMENT.
[2021-01-21 03:54] LABS: BASOPHILS ABSOLUTE AUTO 0.18 K/mm3 (0.00-0.23); BASOPHILS PERCENT AUTO 1 % (0-2); EOSINOPHILS ABSOLUTE AUTO 0.05 K/mm3 (0.00-0.68); EOSINOPHILS PERCENT AUTO 0 % (0-6); Hematocrit 41.5 % (37.0-53.0); Hemoglobin 12.4 g/dL (13.5-17.5); IMMATURE GRAN ABSOLUTE AUTO 1.82 K/mm3 (0.00-0.10); IMMATURE GRAN PERCENT AUTO 9 % (0-1); LYMPHOCYTES ABSOLUTE AUTO 0.45 K/mm3 (0.84-5.20); LYMPHOCYTES PERCENT AUTO 2 % (21-46); MONOCYTES ABSOLUTE AUTO 0.98 K/mm3 (0.16-1.47); MONOCYTES PERCENT AUTO 5 % (4-13); Mean Corpuscular HGB Conc 29.9 g/dL (31.5-36.5); Mean Corpuscular Volume 104 fL (80-100); Mean Platelet Volume 11.4 fL (9.1-12.4); NEUTROPHILS ABSOLUTE AUTO 16.04 K/mm3 (1.96-9.15); NEUTROPHILS PERCENT AUTO 82 % (41-73); Platelet Count 230 K/mm3 (150-400); RDW Coefficient Variation 13.5 % (11.7-14.2); RDW Standard Deviation 52.4 fL (35.1-46.3); White Blood Cell Count 19.52 K/mm3 (4.00-11.30)
[2021-01-21 04:12] LABS: Albumin, Blood 1.7 g/dL (3.4-5.0); Anion Gap 0 mmol/L (6-16); Blood Urea Nitrogen 50 mg/dL (8-24); Bun/Creatinine Ratio 61.6 (12.0-20.0); CO2, Blood 31 mmol/L (21-32); Calcium, Blood 7.9 mg/dL (8.5-10.1); Chloride, Blood 112 mmol/L (98-108); Creatinine, Blood 0.81 mg/dL (0.60-1.20); Glomerular Filtration Rate >60 (60-); Glucose, Blood 187 mg/dL (70-99); Magnesium, Blood 3.5 mg/dL (1.6-2.4); Phosphorus, Blood 2.8 mg/dL (2.5-4.9); Potassium, Blood 4.9 mmol/L (3.5-5.5); Sodium, Blood 143 mmol/L (136-145)
[2021-01-21 04:15] LABS: BAND PERCENT MAN 2 % (0-8); BASOPHILS PERCENT MAN 0 % (0-2); EOSINOPHILS PERCENT MAN 0 % (0-6); LYMPHOCYTES ABSOLUTE MAN 0.39 K/mm3 (0.84-5.20); LYMPHOCYTES PERCENT MAN 2 % (21-46); METAMYELOCYTE ABSOLUTE MAN 0.39 K/mm3 (0.00-0.00); METAMYELOCYTE PERCENT MAN 2 % (0-0); MONOCYTES ABSOLUTE MAN 0.58 K/mm3 (0.16-1.47); MONOCYTES PERCENT MAN 3 % (4-13); NEUTROPHILS ABSOLUTE MAN 18.15 K/mm3 (1.96-9.15); SEG NEUTROPHILS PERCENT MAN 91 % (41-73); TOTAL CELLS COUNTED 100
--- NOTE | 2021-01-21 05:56 | NUR ---
END OF SHIFT SUMMARY NO ACUTE EVENTS OVERNIGHT. PT CONT TO BE INTUBATED WITH VENT SETTINGS AC 24/450/14/60%. PT PARALIZED AND SEDATED; NIMBEX INFUSING AT 3MCG/KG/MIN, TOF 4/4; PROPOFOL INFUSING AT 40MCG/KG/MIN, BIS 40'S. AFEBRILE. HR 90'S. PRN HYDROLAZINE FOLLOWED BY LABETALOL GIVEN FOR HTN; AFTER LABETALOL SBP 130-150'S. PIVOT INFUSING AT GOAL VIA OG. RECTAL TUBE AND SHABAZZ IN PLACE AND DRAINING TO GRAVITY. RT IJ CENTRAL LINE DRESSING C/D/I. PT PRONED SINCE 1999. WILL REPORT TO AM RN WHEN AVAILABLE.
--- NOTE | 2021-01-21 12:40 | NUR ---
NO CHANGES IN ASSESSMENT FROM THIS AM. VSS. UPDATED BOTH DAUGHTER AND VIA PHONE.
--- NOTE | 2021-01-21 16:59 | NUR ---
AT THE 1600 ASSESSMENT THE ONLY CHANGE WAS THE MOTTLING FROM KNEES TO THE GROIN BILATERALLY. RESIDENT INFORMED. BP HAS ALSO BEEN GIVING ISSUES. BEEN PUSHING FENTANYL, HYDRALAZINE DIDNT DO ANYTHING BUT LABETOLOL WITH INCREASING OF PROPOFOL HAS BEEN HAVING AN EFFECT.
--- NOTE | 2021-01-21 18:16 | NUR ---
AT END OF SHIFT PT IS SUPINE OF 1400 WITH VENT SETTINGS AT 24/450/14/65. NIMBEX IS AT 3 AND PROPOFOL IS UP TO 60 SINCE BIS WAS LOW 50S, WITH TOF 4/4. BIS NOW AT MID 40S. PRN PAIN MEDS ORDERED AND GIVEN Q2 SHABAZZ EXCELLENT OUTPUT. NOTHING FROM RECTAL TUBE UPDATED AND DAUGHTER
--- NOTE | 2021-01-21 21:35 | NUR ---
ASSUMED CARE PATIENT LYING IN BED INTUBATED ON AC/VC 24/450/14/70% AND SEDATED ON PROPOFOL @ 40MCG/KG/MIN; NUMBEX @ 3MCG/KG/MIN. NS INF TKO AND TF AT 25ML/HR W/ 30ML Q4H FLUSHES. SHABAZZ PATENT AND DRAINING LIGHT YELLOW/CLOUDY URINE AND RECTAL TUBE PATENT AND DRAINING BROWN/LIQUID STOOL;SLIGHTLY SLUDGE LIKE IN CONSISTENCY. NO FAMILY OR BELONGINGS AT BEDSIDE. SEE NURSING ASSESSMENT FOR FURTHER ASSESSMENT.
[2021-01-22 04:53] LABS: Hematocrit 39.8 % (37.0-53.0); Hemoglobin 12.1 g/dL (13.5-17.5); Mean Corpuscular HGB Conc 30.4 g/dL (31.5-36.5); Mean Corpuscular Volume 102 fL (80-100); Platelet Count 180 K/mm3 (150-400); RDW Coefficient Variation 13.4 % (11.7-14.2); White Blood Cell Count 14.92 K/mm3 (4.00-11.30)
[2021-01-22 05:07] LABS: Albumin, Blood 1.7 g/dL (3.4-5.0); Anion Gap 0 mmol/L (6-16); Blood Urea Nitrogen 50 mg/dL (8-24); Bun/Creatinine Ratio 73.1 (12.0-20.0); CO2, Blood 34 mmol/L (21-32); Calcium, Blood 8.4 mg/dL (8.5-10.1); Chloride, Blood 112 mmol/L (98-108); Creatinine, Blood 0.68 mg/dL (0.60-1.20); Glomerular Filtration Rate >60 (60-); Glucose, Blood 164 mg/dL (70-99); Phosphorus, Blood 2.2 mg/dL (2.5-4.9); Potassium, Blood 4.4 mmol/L (3.5-5.5); Sodium, Blood 146 mmol/L (136-145); Triglycerides 364 mg/dL (30-160)
[2021-01-22 05:36] LABS: BASOPHILS PERCENT MAN 0 % (0-2); EOSINOPHILS PERCENT MAN 0 % (0-6); LYMPHOCYTES ABSOLUTE MAN 0.14 K/mm3 (0.84-5.20); LYMPHOCYTES PERCENT MAN 1 % (21-46); METAMYELOCYTE ABSOLUTE MAN 0.59 K/mm3 (0.00-0.00); METAMYELOCYTE PERCENT MAN 4 % (0-0); MONOCYTES ABSOLUTE MAN 0.44 K/mm3 (0.16-1.47); MONOCYTES PERCENT MAN 3 % (4-13); MYELOCYTE ABSOLUTE MAN 0.74 K/mm3 (0.00-0.00); MYELOCYTE PERCENT MAN 5 % (0-0); NEUTROPHILS ABSOLUTE MAN 12.98 K/mm3 (1.96-9.15); SEG NEUTROPHILS PERCENT MAN 87 % (41-73); TOTAL CELLS COUNTED 100
--- NOTE | 2021-01-22 06:44 | NUR ---
UPDATE NOTIFIED DR MARTINEZ REGARDING PHOS LAB OF 2.2 THIS AM. NEW ORDERS PROVIDED FOR SODIUM PHOS 20MM IV X1.
--- NOTE | 2021-01-22 07:01 | NUR ---
SHIFT SUMMARY PATIENT REMAINED INTUBATED AND SEDATED ON PROPOFOL 50MCG/KG/MIN AND PARALYZED W/ NIMBEX @ 3MCG/KG/MIN. TF REMAINED AT GOAL RATE OF 25ML/HR W/ MINIMAL RESIDUALS. PATIENT TOLERATED PRONING WELL WITH SPO2 IN MID TO HIGH 90'S. SBP INCREASED TO 160'S-170'S W/ MAPS IN 110'S DESPITE DILAUDID IV PUSH; 10MG LABETLOL ADMINISTERED W/ SBP DECREASING TO 110'S-120'S AND MAPS 60'S-80'S. MOTTLING WORSENED SLIGHTLY BY SPREADING FROM KNEES TO NOW ON KNEES, LEGS, AND ELBOWS. NO OTHER MAJOR CHANGES DURING SHIFT.
[2021-01-22 13:54] LABS: pH Blood Arterial 7.32 (7.35-7.45)
[2021-01-22 15:22] LABS: PCO2 Arterial 73 mmHg (35-45)
--- NOTE | 2021-01-23 06:13 | NUR ---
END OF SHIFT SUMMARY: -PATIENT DID NOT TOLERATE WEANING OFF NIMBEX, PATIENT HAD EPISODES OF STACKED BREATHING, COUGHING - NIMBEX INCREASED TO 2 OVERNIGHT (STARTED SHIFT AT 1) AND PROPOFOL INCREASED TO MAX OF 80 (STARTED SHIFT AT 60) BIS CURRENTLY 45. LAST CHECKED TOF WAS 4/4 AT 6. NO GAG REFLEX. COUGH PRESENT WITH INLINE SUCTIONING, BUT INCREASED NIMBEX HELPED PATIENT TOLERATE VENT. AMANDA CORNEAL, BLINK, AND PERRLA D/T PRONING POSITIONING. NO CHANGES MADE IN VENT SETTINGS OVERNIGHT. NO MORNING LABS WERE ORDERED. -PATIENT HAS RECTAL TUBE, NO BM SINCE 01/20 PER PREVIOUS CHARTING - POSSIBLE TO D/C? GIVEN MILK OF MAGNESIA PRN. - TOLERATING TUBE FEEDING, LOW TO NO RESIDUALS OVERNIGHT. SOFT ABDOMEN.
--- NOTE | 2021-01-23 07:23 | NUR ---
TOF-4/4 RIGHT BROW, TF-PIVOT 1.5 @25CC/HR.
[2021-01-23 09:54] LABS: Hematocrit 36.9 % (37.0-53.0); Hemoglobin 11.3 g/dL (13.5-17.5); Mean Corpuscular HGB 31.3 pg (26.0-34.0); Mean Corpuscular HGB Conc 30.6 g/dL (31.5-36.5); Mean Corpuscular Volume 102 fL (80-100); Mean Platelet Volume 11.7 fL (9.1-12.4); Platelet Count 155 K/mm3 (150-400); RDW Coefficient Variation 13.5 % (11.7-14.2); RDW Standard Deviation 51.3 fL (35.1-46.3); Red Blood Cell Count 3.61 M/mm3 (4.30-5.90); White Blood Cell Count 12.38 K/mm3 (4.00-11.30)
[2021-01-23 10:11] LABS: Triglycerides 401 mg/dL (30-160)
--- NOTE | 2021-01-23 10:33 | NUR ---
SPO2-96%, FI02 DOWN TO 85%.
[2021-01-23 10:57] LABS: BAND PERCENT MAN 1 % (0-8); BASOPHILS PERCENT MAN 0 % (0-2); EOSINOPHILS ABSOLUTE MAN 0.12 K/mm3 (0.00-0.68); EOSINOPHILS PERCENT MAN 1 % (0-6); LYMPHOCYTES ABSOLUTE MAN 0.74 K/mm3 (0.84-5.20); LYMPHOCYTES PERCENT MAN 6 % (21-46); MONOCYTES ABSOLUTE MAN 0.61 K/mm3 (0.16-1.47); MONOCYTES PERCENT MAN 5 % (4-13); MYELOCYTE ABSOLUTE MAN 0.49 K/mm3 (0.00-0.00); MYELOCYTE PERCENT MAN 4 % (0-0); NEUTROPHILS ABSOLUTE MAN 10.39 K/mm3 (1.96-9.15); SEG NEUTROPHILS PERCENT MAN 83 % (41-73); TOTAL CELLS COUNTED 100
[2021-01-23 12:01] LABS: PCO2 Arterial 82 mmHg (35-45); PO2 Arterial 65.2 mmHg (80-100)
--- NOTE | 2021-01-23 14:25 | NUR ---
PT ROBERTA UPDATED ON CURRENT STATUS.
--- NOTE | 2021-01-23 18:01 | NUR ---
Received a call from bedside RN, requesting this RN place call to pt's , as she is stating she wants to "send pt to [place]". She was initially yelling into the phone. After acknowledging her frustration and asking her if she is feeling scared about pt's condition, she began to cry, and asked me to follow up with her daughter Carole. Carole then called this RN and explained that her mom, pt's is easily excitable and has just gotten over Covid her own self. She states yesterday she and pt's were unable to get an update on pt's current condition, and it got her "extremely upset" per Carole. She no longer plans to move him. Agreed to give update to Carole tomorrow morning. Carole verbalizes understanding regarding delayed updates at times. Plan to incorporate Palliative care into giving some of the updates as well to begin building a relationship, and to assist ICU staff with phone call volume.
--- NOTE | 2021-01-23 18:33 | NUR ---
PT REMAINS INTUBATED, SEDATED AND PARALIZED. PROPOFOL INFUSING @75MCG AND NIMBEX INFUSING AT 1.5MCG. BILATERAL SOFT WRIST RESTRAINTS REMAIN IN PLACE PT IS HIGH RISK FOR SELF EXTUBATION. PTS FAMILY HAS BEEN UPDATED MULTIPLE TIMES T/O SHIFT. NO ACUTE CHANGES AT THIS TIME. REPORT TO BE GIVEN TO ONCOMING RN. T04-08/06 RIGHT BROW AT 09/11.
--- NOTE | 2021-01-23 18:54 | NUR ---
RR UP TO 32/MIN. MEDICATED WITH FENTANLY 50MCG IV, RR DOWN TO 24/MIN.
--- NOTE | 2021-01-23 20:00 | NUR ---
ASSUMED CARE OF PT AT 1915. REPORT RECEIVED. PT PRESENTS IN BED - INTUBATED: AC 24, Tv 450, 12, 90 PERCENT. PT MAINTAINS > 90 PERCENT SATURATIONS. NIMBEX AT 1.5 MCG'S/KG/MIN FOR PARALYSIS. PROPOFOL FOR SEDATION. PT HAS STRONG 4/4 ON TRAIN OF FOUR. HAVE INCREASED 2 MCG'S/KG/MIN. WILL CONTINUE TO MONITOR. WILL REVIEW CHART AND PLAN CARE.
[2021-01-24 05:42] LABS: Albumin, Blood 1.8 g/dL (3.4-5.0); Anion Gap 0 mmol/L (6-16); Blood Urea Nitrogen 47 mg/dL (8-24); Bun/Creatinine Ratio 65.7 (12.0-20.0); CO2, Blood 37 mmol/L (21-32); Calcium, Blood 8.3 mg/dL (8.5-10.1); Chloride, Blood 108 mmol/L (98-108); Creatinine, Blood 0.72 mg/dL (0.60-1.20); Glomerular Filtration Rate >60 (60-); Glucose, Blood 130 mg/dL (70-99); Potassium, Blood 5.3 mmol/L (3.5-5.5); Sodium, Blood 145 mmol/L (136-145)
--- NOTE | 2021-01-24 06:30 | NUR ---
PT CONTINUES TO BE PRONE THROUGH THE NIGHT. SEDATED WITH PROPOFOL AND IS ON NIMBEX DRIP FOR PARALYSIS FOR VENT COMPLIANCE. PT MAINTAINS SATURATION OF > 90 PERCENT. TUBE FEEDING REMAINS AT GOAL. NO RESIDUALS PER OGT. WILL CONTINUE TO MONITOR PT, AND WILL REPORT OFF TO ONCOMING RN.
[2021-01-24 09:28] LABS: BASOPHILS ABSOLUTE AUTO 0.11 K/mm3 (0.00-0.23); BASOPHILS PERCENT AUTO 1 % (0-2); EOSINOPHILS ABSOLUTE AUTO 0.28 K/mm3 (0.00-0.68); EOSINOPHILS PERCENT AUTO 2 % (0-6); Hematocrit 38.5 % (37.0-53.0); Hemoglobin 11.5 g/dL (13.5-17.5); IMMATURE GRAN ABSOLUTE AUTO 1.37 K/mm3 (0.00-0.10); IMMATURE GRAN PERCENT AUTO 9 % (0-1); LYMPHOCYTES ABSOLUTE AUTO 0.52 K/mm3 (0.84-5.20); LYMPHOCYTES PERCENT AUTO 4 % (21-46); MONOCYTES ABSOLUTE AUTO 0.59 K/mm3 (0.16-1.47); MONOCYTES PERCENT AUTO 4 % (4-13); Mean Corpuscular HGB 31.3 pg (26.0-34.0); Mean Corpuscular HGB Conc 29.9 g/dL (31.5-36.5); Mean Corpuscular Volume 105 fL (80-100); Mean Platelet Volume 12.3 fL (9.1-12.4); NEUTROPHILS ABSOLUTE AUTO 12.11 K/mm3 (1.96-9.15); NEUTROPHILS PERCENT AUTO 81 % (41-73); Platelet Count 164 K/mm3 (150-400); RDW Coefficient Variation 13.6 % (11.7-14.2); RDW Standard Deviation 53.8 fL (35.1-46.3); Red Blood Cell Count 3.68 M/mm3 (4.30-5.90); White Blood Cell Count 14.98 K/mm3 (4.00-11.30)
[2021-01-24 10:06] LABS: BAND PERCENT MAN 2 % (0-8); BASOPHILS PERCENT MAN 0 % (0-2); EOSINOPHILS PERCENT MAN 0 % (0-6); LYMPHOCYTES ABSOLUTE MAN 0.29 K/mm3 (0.84-5.20); LYMPHOCYTES PERCENT MAN 2 % (21-46); MONOCYTES ABSOLUTE MAN 0.29 K/mm3 (0.16-1.47); MONOCYTES PERCENT MAN 2 % (4-13); MYELOCYTE ABSOLUTE MAN 1.04 K/mm3 (0.00-0.00); MYELOCYTE PERCENT MAN 7 % (0-0); NEUTROPHILS ABSOLUTE MAN 13.33 K/mm3 (1.96-9.15); SEG NEUTROPHILS PERCENT MAN 87 % (41-73); TOTAL CELLS COUNTED 100
--- NOTE | 2021-01-24 10:14 | NUR ---
Pt's daughter Carole called this am, update on pt's condition given. She will share the information with pt's .
--- NOTE | 2021-01-24 19:37 | NUR ---
ASSUMED CARE OF PT AT 1915 REPORT RECEIVED. PT PRESENTS IN BED. INTUBATED - VENT: AC 24, Tv 400, FIO2 80 PERCENT, PEEP 12. NIMBEX INCREASED FROM 2.5 MCG'S/KG/MIN TO 3 SECONDARY TO FULL 4/4 FROM TRAIN OF FOUR. PROPOFOL FOR SEDATION AT 75 MCG'S/KG/MIN THIS DECREASED TO 70 MCG'S/KG/MIN SECONDARY TO 30'S PER BIS MONITORING. WILL RE-EVALUATE NEED FOR FURTHER TITRATION. MAINTAINING SATURATIONS > 90 PERCENT. WILL REVIEW CHART AND PLAN OF CARE FOR THIS PT.
--- NOTE | 2021-01-24 23:20 | NUR ---
PT PRONED WITH FOUR PERSON FOR TURN, AND RESPIRATORY FOR VENT AND ETT SAFETY. HAVE BEEN ABLE TO DECREASE SEDATION SOME WITH BIS MONITORING REMAINING <40. WILL CONTINUE TO MONITOR TO 40-60. TRAIN OF FOUR IS PRESENT.
--- NOTE | 2021-01-25 06:33 | NUR ---
HAVE BEEN ABLE TO TITRATED DOWN SEDATION PROPOFOL TO 60 MCG'S/KG/MIN. BIS MONITORING CURRENTLY 40-43. PT HAS REMAINED PRONED THROUGH THE NIGHT. MAINTAINS SATURATIONS > 90 PERCENT. WILL CONTINUE TO MONITOR PT, AND WILL REPORT OFF TO ONCOMING RN.
[2021-01-25 07:42] LABS: BASOPHILS ABSOLUTE AUTO 0.16 K/mm3 (0.00-0.23); BASOPHILS PERCENT AUTO 1 % (0-2); EOSINOPHILS ABSOLUTE AUTO 0.09 K/mm3 (0.00-0.68); EOSINOPHILS PERCENT AUTO 1 % (0-6); Hematocrit 39.4 % (37.0-53.0); Hemoglobin 11.7 g/dL (13.5-17.5); IMMATURE GRAN ABSOLUTE AUTO 2.57 K/mm3 (0.00-0.10); IMMATURE GRAN PERCENT AUTO 14 % (0-1); LYMPHOCYTES ABSOLUTE AUTO 0.69 K/mm3 (0.84-5.20); LYMPHOCYTES PERCENT AUTO 4 % (21-46); MONOCYTES ABSOLUTE AUTO 0.96 K/mm3 (0.16-1.47); MONOCYTES PERCENT AUTO 5 % (4-13); Mean Corpuscular HGB 31.7 pg (26.0-34.0); Mean Corpuscular HGB Conc 29.7 g/dL (31.5-36.5); Mean Corpuscular Volume 107 fL (80-100); Mean Platelet Volume 11.9 fL (9.1-12.4); NEUTROPHILS ABSOLUTE AUTO 14.55 K/mm3 (1.96-9.15); NEUTROPHILS PERCENT AUTO 77 % (41-73); NRBC ABSOLUTE 0.06 K/mm3 (0.00-0.02); NRBC Auto 0.3 /100 WBC (0.0-0.2); Platelet Count 189 K/mm3 (150-400); RDW Coefficient Variation 13.5 % (11.7-14.2); RDW Standard Deviation 53.5 fL (35.1-46.3); Red Blood Cell Count 3.69 M/mm3 (4.30-5.90); White Blood Cell Count 19.02 K/mm3 (4.00-11.30)
[2021-01-25 08:12] LABS: BAND PERCENT MAN 3 % (0-8); BASOPHILS PERCENT MAN 0 % (0-2); EOSINOPHILS ABSOLUTE MAN 0.38 K/mm3 (0.00-0.68); EOSINOPHILS PERCENT MAN 2 % (0-6); LYMPHOCYTES ABSOLUTE MAN 0.95 K/mm3 (0.84-5.20); LYMPHOCYTES PERCENT MAN 5 % (21-46); METAMYELOCYTE ABSOLUTE MAN 0.19 K/mm3 (0.00-0.00); METAMYELOCYTE PERCENT MAN 1 % (0-0); MONOCYTES PERCENT MAN 0 % (4-13); NEUTROPHILS ABSOLUTE MAN 14.45 K/mm3 (1.96-9.15); OTHER CELL PERCENT MAN 16 % (0-0); SEG NEUTROPHILS PERCENT MAN 73 % (41-73); TOTAL CELLS COUNTED 100
[2021-01-25 08:16] LABS: Anion Gap 0 mmol/L (6-16); Blood Urea Nitrogen 60 mg/dL (8-24); Bun/Creatinine Ratio 77.3 (12.0-20.0); CO2, Blood 39 mmol/L (21-32); Calcium, Blood 8.5 mg/dL (8.5-10.1); Chloride, Blood 105 mmol/L (98-108); Creatinine, Blood 0.78 mg/dL (0.60-1.20); Glomerular Filtration Rate >60 (60-); Glucose, Blood 153 mg/dL (70-99); Phosphorus, Blood 4.3 mg/dL (2.5-4.9); Potassium, Blood 6.2 mmol/L (3.5-5.5); Sodium, Blood 144 mmol/L (136-145)
[2021-01-25 09:28] LABS: Blood Urea Nitrogen 60 mg/dL (8-24); Bun/Creatinine Ratio 80.9 (12.0-20.0); CO2, Blood 40 mmol/L (21-32); Calcium, Blood 8.3 mg/dL (8.5-10.1); Chloride, Blood 106 mmol/L (98-108); Creatinine, Blood 0.74 mg/dL (0.60-1.20); Glomerular Filtration Rate >60 (60-); Glucose, Blood 142 mg/dL (70-99); Potassium, Blood 6.1 mmol/L (3.5-5.5); Sodium, Blood 144 mmol/L (136-145)
[2021-01-25 09:29] LABS: Anion Gap Unable to Calculate mmol/L (6-16)
[2021-01-25 13:15] LABS: PCO2 Arterial 95.5 mmHg (35-45); pH Blood Arterial 7.25 (7.35-7.45)
[2021-01-25 13:16] LABS: PO2 Arterial 65.2 mmHg (80-100)
--- NOTE | 2021-01-25 13:27 | NUR ---
AT ABOUT 1243, MD ORDER TO TURN OFF PT PARALYTIC SO SEE HOW PT WILL RESPOND. MEDICATION IS ON STANDBY ORDER.
[2021-01-25 13:40] LABS: Blood Urea Nitrogen 57 mg/dL (8-24); Bun/Creatinine Ratio 76.7 (12.0-20.0); CO2, Blood 40 mmol/L (21-32); Calcium, Blood 8.2 mg/dL (8.5-10.1); Chloride, Blood 106 mmol/L (98-108); Creatinine, Blood 0.74 mg/dL (0.60-1.20); Glomerular Filtration Rate >60 (60-); Glucose, Blood 204 mg/dL (70-99); Potassium, Blood 5.5 mmol/L (3.5-5.5); Sodium, Blood 145 mmol/L (136-145)
[2021-01-25 13:44] LABS: Anion Gap Unable to Calculate mmol/L (6-16)
--- NOTE | 2021-01-26 01:48 | NUR ---
ASSUMED CARE AT 1900 PATIENT INTUBATED AND SEDATION. VENT SETTINGS ACVC 24/400/12/85%. PROPOFOL INFUSING AT 60MCG/KG/MIN. HR IN LOW 90'S AND BP 120/70'S. TUBE FEEDS RUNNING AT GOAL VIA OG TUBE. SHABAZZ DRAINING URINE TO GRAVITY. SKIN WARM, DRY, & INTACT. SEE SHIFT ASSESSMENT FOR FULL ASSESSMENT.
--- NOTE | 2021-01-26 06:16 | NUR ---
END OF SHIFT NO ACUTE OVERNIGHT EVENTS. PATIENT REMAINS INTUBATED AND SEDATED. VENT SETTINGS ACVC 24/400/12/85%. HR 92 AND BP 130/70'S. TUBE FEEDS REMAIN RUNNING AT GOAL. SHABAZZ DRAINING URINE TO GRAVITY. SKIN REMAINS INTACT. PATIENT CURRENTLY PRONED AND TOLERATING IT WELL. WILL REPORT TO AM RN WHEN AVAILABLE.
[2021-01-26 11:41] LABS: Anion Gap 0 mmol/L (6-16); Blood Urea Nitrogen 52 mg/dL (8-24); Bun/Creatinine Ratio 78.4 (12.0-20.0); CO2, Blood 43 mmol/L (21-32); CPK Creatine Kinase 91 U/L (39-308); Calcium, Blood 8.5 mg/dL (8.5-10.1); Chloride, Blood 104 mmol/L (98-108); Creatinine, Blood 0.66 mg/dL (0.60-1.20); Glomerular Filtration Rate >60 (60-); Glucose, Blood 157 mg/dL (70-99); Potassium, Blood 4.6 mmol/L (3.5-5.5); Sodium, Blood 147 mmol/L (136-145); Triglycerides 569 mg/dL (30-160)
[2021-01-26 12:41] LABS: PCO2 Arterial 79.5 mmHg (35-45); PO2 Arterial 74.1 mmHg (80-100); pH Blood Arterial 7.39 (7.35-7.45)
--- NOTE | 2021-01-26 18:35 | NUR ---
PT. REMAIN ON THE VENTLIATOR WITH MIN SEDATION. NO ACUTE EVENT DURING THE SHIFT. VENT SETTING WAS TRITRATED DOWN PER MD ORDERS. PROPOFOL WAS DC MD DUR INCREASE IN TRIGLYCERIN LEVEL. PRECEDEX STARTED PER ORDERS.
--- NOTE | 2021-01-26 20:05 | NUR ---
SHIFT ASSESSMENT ASSUMED CARE OF PT @ 1900. PT INTUBATED AND SEDATED. PRECEDEX GTT @ 0.4MCG/KG/HR. VENT SETTINGS-AC:20/400/70%/12 c O2 SATS >88%. PT SUPINE UPON ASSESSMENT, PRONED @ 1999, DID NOT TOLERATE WELL. MEDICATED WITH PRN ATIVAN AND FENTANYL WITH LITTLE RESOPNSE. NOTIFIED DRY END OPERATOR, NEW ORDERS PLACED. TF INFUSING AT GOAL, NO RESIDUALS. SHABAZZ CATH PATENT, DRAINING YELLOW URINE.
[2021-01-27 04:15] LABS: Alanine Aminotransfer (ALT/SGP 60 U/L (12-78); Albumin, Blood 1.8 g/dL (3.4-5.0); Albumin/Globulin Ratio 0.5 (0.8-1.8); Alk Phos 81 U/L (50-136); Aspartate Aminotrans (AST/SGOT 25 U/L (12-37); Bilirubin, Total 0.4 mg/dL (0.1-1.0); Blood Urea Nitrogen 55 mg/dL (8-24); Bun/Creatinine Ratio 97.3 (12.0-20.0); Calcium, Blood 8.6 mg/dL (8.5-10.1); Chloride, Blood 106 mmol/L (98-108); Creatinine, Blood 0.57 mg/dL (0.60-1.20); Globulin, Blood 3.9 g/dL (2.2-4.0); Glomerular Filtration Rate >60 (60-); Glucose, Blood 108 mg/dL (70-99); Sodium, Blood 149 mmol/L (136-145); Total Protein, Blood 5.7 g/dL (6.4-8.2); Triglycerides 280 mg/dL (30-160)
[2021-01-27 04:27] LABS: Anion Gap Unable to Calculate mmol/L (6-16); CO2, Blood >45 mmol/L (21-32)
[2021-01-27 05:16] LABS: PO2 Arterial 69.6 mmHg (80-100); pH Blood Arterial 7.34 (7.35-7.45)
[2021-01-27 05:17] LABS: PCO2 Arterial 85.3 mmHg (35-45)
--- NOTE | 2021-01-27 06:54 | NUR ---
SHIFT SUMMARY NO ACUTE CHANGES IN PT CONDITION. REMAINS PRONE, TOLERATING VENT OK c PRECEDEX @ 0.9MCG/KG/HR. MEDICATED WITH PRN ATIVAN AND FENTANYL DURING THE NIGHT. TF REMAINS AT GOAL. NO BM. VSS. REPORT TO ONCOMING NURSE.
--- NOTE | 2021-01-27 19:00 | NUR ---
ASSUME CARE PATIENT IS INTUBATED AND SEDATED. VENT SETTING: AC 20/400/12/70%. PRECEDEX DRIP RUNNING. APPEARS SINUS RHYTHM ON THE MONITOR AND NORMOTENSIVE. SHABAZZ DRAINING DARK YELLOW URINE TO GRAVITY. TUBE FEEDS RUNNING AT GOAL VIA OG. SKIN DRY AND INTACT WITH REDNESS TO BILAT HEELS. SEE SHIFT ASSESSMENT FOR FURTHER DETAILS.
--- NOTE | 2021-01-27 22:01 | NUR ---
UPDATE: RESPIRATORY PATIENT FIGHTING VENT AND SATING 90%. SBP>170 SO PRN FENTANYL AND ATIVAN GIVEN. PATIENT SATS DROPPED TO MID 80%. PER RT, INCREASED FIO2 TO 100%.
[2021-01-28 06:27] LABS: Blood Urea Nitrogen 49 mg/dL (8-24); Bun/Creatinine Ratio 82.5 (12.0-20.0); Chloride, Blood 109 mmol/L (98-108); Creatinine, Blood 0.59 mg/dL (0.60-1.20); Glomerular Filtration Rate >60 (60-); Glucose, Blood 117 mg/dL (70-99); Magnesium, Blood 3.1 mg/dL (1.6-2.4); Potassium, Blood 4.9 mmol/L (3.5-5.5); Sodium, Blood 151 mmol/L (136-145)
[2021-01-28 06:40] LABS: Anion Gap Unable to Calculate mmol/L (6-16)
[2021-01-28 06:42] LABS: CO2, Blood >45 mmol/L (21-32)
--- NOTE | 2021-01-28 06:43 | NUR ---
CO2 CRITICAL CO2 >45 GIVEN TO EDWIN Jones RN PER LAB
--- NOTE | 2021-01-28 07:13 | NUR ---
END OF SHIFT SUMMARY: PATIENT REMAINS INTUBATED, SEDATED, AND PRONED. VENT: AC 20/400/12/75 BUT NOT IN SYNC. PRN ATIVAN GIVEN WITH SOME IMPROVEMENT. PRECEDEX DRIP AT 1.0MCG/KG/HR. HR IN 60'S AND BP SOFT BUT MAP >60. SHABAZZ DRAINING YELLOW URINE TO GRAVITY. TOLERATING TUBE FEEDS VIA OG. SKIN REMAINS INTACT AND HEEL PROTECTORS PLACED FOR PROTECTION. REPORT GIVEN TO AM RN. 0643: RECEIVED CRITICAL RESULTS: CO2 >45. THIS IS THE SAME RESULT FROM YESTERDAY, INFORMED DAYSHIFT RN DURING REPORT.
--- NOTE | 2021-01-28 17:38 | NUR ---
SHIFT SUMMARY NO ACUTE CHANGES THIS SHIFT. PT HAS REMAINED INTUBATED AND SEDATED. VENT SETTINGS AC 20, TV 400, PEEP 12, FIO2 80%. PT WITH SCANT ETT SECRETIONS NOTED. PT SEDATED WITH PRECEDEX AT 1.4 MCG/KG/HR. PT WITH COUGH AND GAG WITH SUCTION. PT DOES NOT RESPOND TO ANY OTHER NOXIOUS STIMULI. OGT IN PLACE WITH TF INFUSING AT GOAL RATE. CENTRAL LINE TO RIJ REMAINS C/D/I. SHABAZZ REMAINS IN PLACE WITH CLEAR YELLOW URINE OUTPUT NOTED. SBW RESTRAINTS REMAIN IN PLACE. VITAL SIGNS STABLE. WILL CONTINUE TO MONITOR AND REPORT OFF TO ONCOMING RN.
--- NOTE | 2021-01-28 19:00 | NUR ---
ASSUME CARE: PATIENT INTUBATED AND SEDATED. VENT SETTINGS: AC 20/400/12/80%. PRECEDEX GTT INFUSING AT MAX RATE 0.4MCG/KG/HR. HR & BP WNL. SWB RESTRAINTS IN PLACE. SHABAZZ DRAINING CLEAR YELLOW URINE TO GRAVITY. TF RUNNING AT GOAL VIA OG. SKIN WARM, DRY, AND INTACT WITH HEEL PROTECTORS IN PLACE. PLAN TO PRONE AT 2000. R IJ CVC CLEAN, DRY, AND INTACT. SEE SHIFT ASSESSMENT FOR FURTHER DETAILS.
--- NOTE | 2021-01-29 06:22 | NUR ---
END OF SHIFT SUMMARY: NO ACUTE EVENTS OVERNIGHT. PATIENT REMAINS INTUBATED AND SEDATED IN PRONE POSITION. PRECEDEX STILL INFUSING AT MAX RATE. SEVERAL ATIVAN AND FENTANTYL PUSHES GIVEN B/C PATIENT OVERBREATHS THE VENT WHEN REPOSITIONED. HR AND BP WNL. TF CONTINUE TO RUN AT GOAL VIA OG. SHABAZZ STILL DRAINING DARK YELLOW URINE TO GRAVITY. SKIN IS DRY AND INTACT. WILL REPORT TO ONCOMING NURSE WHEN AVAILABLE.
[2021-01-29 16:29] LABS: Hematocrit 36.8 % (37.0-53.0); Hemoglobin 10.6 g/dL (13.5-17.5); Mean Corpuscular HGB 31.9 pg (26.0-34.0); Mean Corpuscular HGB Conc 28.8 g/dL (31.5-36.5); Mean Corpuscular Volume 111 fL (80-100); Mean Platelet Volume 11.9 fL (9.1-12.4); Platelet Count 156 K/mm3 (150-400); RDW Coefficient Variation 14.1 % (11.7-14.2); RDW Standard Deviation 56.8 fL (35.1-46.3); Red Blood Cell Count 3.32 M/mm3 (4.30-5.90); White Blood Cell Count 15.87 K/mm3 (4.00-11.30)
[2021-01-29 16:46] LABS: Blood Urea Nitrogen 46 mg/dL (8-24); Bun/Creatinine Ratio 77.7 (12.0-20.0); CO2, Blood 42 mmol/L (21-32); Chloride, Blood 111 mmol/L (98-108); Creatinine, Blood 0.59 mg/dL (0.60-1.20); Glomerular Filtration Rate >60 (60-); Glucose, Blood 150 mg/dL (70-99); Potassium, Blood 4.6 mmol/L (3.5-5.5); Sodium, Blood 151 mmol/L (136-145)
[2021-01-29 16:48] LABS: Anion Gap Unable to Calculate mmol/L (6-16)
--- NOTE | 2021-01-29 18:03 | NUR ---
Received a call from pt's daughter Carole this evening. She reports her aunt was extremely "riled up" and called the pt's , also getting her "riled up" as Carole calls it. Carole and I have talked in the past, and she does seem to get the best results with relaying information to her mother who tells me she has know him since they were both 13. Pt's has also told me she "just couldn't lose him". Today, Dr. Boyle did tell pt's sister she was going to order MRI of pt's brain as he is not waking up. She passed the information on to pt's , who called Carole in "a panic". I did explain what the "brain scan" was about to Carole, who states she will relay the information to her mom, and she is beginning to speak more openly with her mother regarding pt's prognosis, which at this time is quite guarded. Will continue speaking to Carole and giving regular updates to her to share with her mother, pt's significant other.
--- NOTE | 2021-01-29 19:00 | NUR ---
ASSUME CARE NOTE: PATIENT INTUBATED & SEDATED. VENT: AC 20/400/12/80%. PRECEDEX GGT INFUSING. SWB RESTRAINTS IN PLACE. OPENS EYES TO PAIN & GRIMACES W/ ORAL CARE BUT DOES NOT FOLLOW COMMANDS OR TRACK. HR & BP STABLE. SHABAZZ DRAINING CLEAR YELLOW URINE TO GRAVITY. PIVOT 1.5 RUNNING AT 30ML WITH GOAL OF 45 & 250ML H2O FLUSHES Q6HR VIA OG. SKIN WARM, DRY, & INTACT WITH BILAT HEEL REDNESS. CVC DRESSING CLEAN, DRY, & INTACT. PATIENT PENDING A HEAD CT. PLAN TO PRONE AFTER IMAGING. SEE SHIFT ASSESSMENT FOR DETAILS.
--- NOTE | 2021-01-29 21:00 | NUR ---
TRANSPORT TO CT: TRANSPORTED PATIENT TO CT SCAN WITH RT, 2 HELPERS, AND MYSELF. PATIENT PLACED ON TRAVEL MONITOR AND RESTRAINTS REMOVED. DURING TRANSPORT, PATIENT DESATED TO 60%, STOPPED AND RT MAUNUALLY BAGGED PATIENT UNTIL WE REACHED CT. PATIENT'S SATS RECOVERED AND SCAN WAS COMPLETED. PATIENT BACK IN ROOM WITH RESTRAINTS REAPPLIED. SATING IN HIGH 90% WITH HR & BP STABLE.
--- NOTE | 2021-01-29 23:00 | NUR ---
UPDATE: PRONE AFTER PRONING PATIENT NOT IN SYNC WITH VENT. PRECEDEX DRIP INCREASED TO MAX 1.4MCG/KG/MIN & PRN FENTANYL & ATIVAN GIVEN W/ NO IMPROVEMENT. PEAK PRESSURES ARE UP TO 50 AND PATIENT IS STACKING BREATHS. RT CALLED AND SHE PLACED PATIENT ON PRESSURE CONTROL OF 15. SPOKE WITH DR. BRITO WHO STATES WE CAN PARALYZE WITH NIMBEX AND RESTART PROPOFOL.
--- NOTE | 2021-01-29 23:05 | NUR ---
UPDATE: NO NIMBEX AFTER SPEAKING WITH CHARGE, RN, CALLED AND SPOKE WITH DR. MARCIAL WHO STATES TO START WITH PROPOFOL FIRST AND IF PATIENT STILL BUCKING VENT, CAN CONSIDER PARALYZING. WILL D/C NIMBEX AND START PROPOFOL. SHE STATES IT IS OK TO KEEP PATIENT ON PRESSURE CONTROL UNTIL PROPERLY SEDATED.
[2021-01-30 04:47] LABS: BASOPHILS ABSOLUTE AUTO 0.04 K/mm3 (0.00-0.23); BASOPHILS PERCENT AUTO 0 % (0-2); EOSINOPHILS ABSOLUTE AUTO 0.07 K/mm3 (0.00-0.68); EOSINOPHILS PERCENT AUTO 1 % (0-6); Hematocrit 33.4 % (37.0-53.0); Hemoglobin 9.5 g/dL (13.5-17.5); IMMATURE GRAN ABSOLUTE AUTO 0.53 K/mm3 (0.00-0.10); IMMATURE GRAN PERCENT AUTO 5 % (0-1); LYMPHOCYTES ABSOLUTE AUTO 0.58 K/mm3 (0.84-5.20); LYMPHOCYTES PERCENT AUTO 5 % (21-46); MONOCYTES ABSOLUTE AUTO 0.61 K/mm3 (0.16-1.47); MONOCYTES PERCENT AUTO 6 % (4-13); Mean Corpuscular HGB 31.4 pg (26.0-34.0); Mean Corpuscular HGB Conc 28.4 g/dL (31.5-36.5); Mean Corpuscular Volume 110 fL (80-100); NEUTROPHILS ABSOLUTE AUTO 9.01 K/mm3 (1.96-9.15); NEUTROPHILS PERCENT AUTO 83 % (41-73); Platelet Count 134 K/mm3 (150-400); RDW Coefficient Variation 13.9 % (11.7-14.2); RDW Standard Deviation 55.2 fL (35.1-46.3); Red Blood Cell Count 3.03 M/mm3 (4.30-5.90); White Blood Cell Count 10.84 K/mm3 (4.00-11.30)
[2021-01-30 05:02] LABS: Blood Urea Nitrogen 45 mg/dL (8-24); Bun/Creatinine Ratio 80.6 (12.0-20.0); CO2, Blood 44 mmol/L (21-32); Chloride, Blood 112 mmol/L (98-108); Creatinine, Blood 0.56 mg/dL (0.60-1.20); Glomerular Filtration Rate >60 (60-); Glucose, Blood 166 mg/dL (70-99); Potassium, Blood 4.3 mmol/L (3.5-5.5); Sodium, Blood 153 mmol/L (136-145)
[2021-01-30 05:32] LABS: Anion Gap Unable to Calculate mmol/L (6-16)
--- NOTE | 2021-01-30 06:47 | NUR ---
END OF SHIFT SUMMARY: PATIENT REMAINS INTUBATED, SEDATED, & PRONED. ADDING PROPOFOL & PLACING PATIENT ON PRESSURE CONTROL HAS ALLOWED PATIENT TO BE MORE IN SYNC WITH THE VENT. VENT SETTIN/400/12/90%. HE NO LONGER OPENS EYES OR GRIMACES WITH ORAL CARE SINCE PROPOFOL STARTED. PENDING CT HEAD RESULTS. HR & BP STABLE & WNL. TF NOW RUNNING AT GOAL AND SHABAZZ DRAINING CLEAR YELLOW URINE. SKIN WARM, DRY, & INTACT. NO BM THIS SHIFT. WILL REPORT TO ONCOMING RN WHEN AVAILABLE.
--- NOTE | 2021-01-30 15:14 | NUR ---
Update given to pt's daughter Carole on pt's condition. She states she knows her mother, pt's significant other will "100% want the trach for him" if things progress to that point. Will pass this information on to both bedside RN and MD.
[2021-01-30 15:26] LABS: Hematocrit 34.5 % (37.0-53.0); Hemoglobin 9.7 g/dL (13.5-17.5); Mean Corpuscular HGB 31.4 pg (26.0-34.0); Mean Corpuscular HGB Conc 28.1 g/dL (31.5-36.5); Mean Corpuscular Volume 112 fL (80-100); Mean Platelet Volume 12.3 fL (9.1-12.4); Platelet Count 132 K/mm3 (150-400); RDW Standard Deviation 55.8 fL (35.1-46.3); Red Blood Cell Count 3.09 M/mm3 (4.30-5.90); White Blood Cell Count 11.26 K/mm3 (4.00-11.30)
[2021-01-30 15:45] LABS: Blood Urea Nitrogen 44 mg/dL (8-24); Bun/Creatinine Ratio 67.3 (12.0-20.0); CO2, Blood 43 mmol/L (21-32); Chloride, Blood 112 mmol/L (98-108); Creatinine, Blood 0.65 mg/dL (0.60-1.20); Glomerular Filtration Rate >60 (60-); Glucose, Blood 195 mg/dL (70-99); Potassium, Blood 4.5 mmol/L (3.5-5.5); Sodium, Blood 151 mmol/L (136-145)
[2021-01-30 15:47] LABS: Anion Gap Unable to Calculate mmol/L (6-16)
--- NOTE | 2021-01-30 17:18 | NUR ---
PT CONTINUED TO REMAIN ON THE VENTILATOR AND SEDATED. NO MAJOR ACTIVITY NOTED TODAY. PT IS NOT OPENNING HIS EYE NOR FOLLOWING COMMAND. CT OF THE HEAD FROM YESTERDAY WAS NEGATIVE. WILL CONTINUE TO MONITOR FOR SAFETY.
--- NOTE | 2021-01-31 00:52 | NUR ---
GERARDO CONTINUES ON THE VENTILATOR, AC/PC RATE 20 PEEP 12 75% FIO2, ETT 8.0, 26CM @ THE LIPS, HE IS PRONE, HEAD TURN AND BODY SHIFT, PT SATS DOWN TO LOW 80'S, RECOVERS IN A FEW MOMENTS. TUBE FEEDING CONTINUES, RESIDUAL <10, TITI AREA RED,FRAGILE. PENIS SCABBED OVER, RED. CLEANED AND LOTION APPLIED. SHABAZZ TO GRAIVYT DRAINAGE.
[2021-01-31 04:26] LABS: BASOPHILS ABSOLUTE AUTO 0.06 K/mm3 (0.00-0.23); BASOPHILS PERCENT AUTO 0 % (0-2); EOSINOPHILS ABSOLUTE AUTO 0.07 K/mm3 (0.00-0.68); EOSINOPHILS PERCENT AUTO 0 % (0-6); Hematocrit 33.6 % (37.0-53.0); Hemoglobin 9.7 g/dL (13.5-17.5); IMMATURE GRAN ABSOLUTE AUTO 0.71 K/mm3 (0.00-0.10); IMMATURE GRAN PERCENT AUTO 4 % (0-1); LYMPHOCYTES ABSOLUTE AUTO 0.76 K/mm3 (0.84-5.20); LYMPHOCYTES PERCENT AUTO 5 % (21-46); MONOCYTES ABSOLUTE AUTO 0.93 K/mm3 (0.16-1.47); MONOCYTES PERCENT AUTO 6 % (4-13); Mean Corpuscular HGB 31.4 pg (26.0-34.0); Mean Corpuscular HGB Conc 28.9 g/dL (31.5-36.5); Mean Corpuscular Volume 109 fL (80-100); NEUTROPHILS ABSOLUTE AUTO 13.64 K/mm3 (1.96-9.15); NEUTROPHILS PERCENT AUTO 84 % (41-73); Platelet Count 158 K/mm3 (150-400); RDW Coefficient Variation 14.3 % (11.7-14.2); RDW Standard Deviation 55.6 fL (35.1-46.3); Red Blood Cell Count 3.09 M/mm3 (4.30-5.90); White Blood Cell Count 16.17 K/mm3 (4.00-11.30)
[2021-01-31 04:47] LABS: Alanine Aminotransfer (ALT/SGP 69 U/L (12-78); Albumin, Blood 1.8 g/dL (3.4-5.0); Albumin/Globulin Ratio 0.4 (0.8-1.8); Alk Phos 104 U/L (50-136); Aspartate Aminotrans (AST/SGOT 34 U/L (12-37); Bilirubin, Total 0.6 mg/dL (0.1-1.0); Blood Urea Nitrogen 41 mg/dL (8-24); Bun/Creatinine Ratio 64.9 (12.0-20.0); CO2, Blood 42 mmol/L (21-32); Calcium, Blood 9.1 mg/dL (8.5-10.1); Chloride, Blood 110 mmol/L (98-108); Creatinine, Blood 0.63 mg/dL (0.60-1.20); Glomerular Filtration Rate >60 (60-); Glucose, Blood 167 mg/dL (70-99); Magnesium, Blood 2.9 mg/dL (1.6-2.4); Sodium, Blood 150 mmol/L (136-145); Total Protein, Blood 5.8 g/dL (6.4-8.2)
[2021-01-31 04:51] LABS: PO2 Arterial 69.4 mmHg (80-100); pH Blood Arterial 7.32 (7.35-7.45)
[2021-01-31 04:52] LABS: PCO2 Arterial 83.4 mmHg (35-45)
[2021-01-31 04:55] LABS: Anion Gap Unable to Calculate mmol/L (6-16)
--- NOTE | 2021-01-31 06:00 | NUR ---
GERARDO REMAINS IN PRONE POSITION. HE IS ON THE VENTILATOR, AC 24, 50% FIO2, THEN PC 16, .88, PEEP 12, 75%. HIS CO2 ON HIS ABG RETURNED 83.4, WAS NOTIFIED, NO ORDERS RECEIVED. HE CONTINUES TO MOVE HIS MOUTH WITH BREATHING, EYES SWOLLEN, LIPS AND TONGUE SWOLLEN WELL. PT REMAINS WITHOUT RESTRAINTS, NO MOVEMENTS HAVE BEEN NOTED. PT CONTINUES ON PROPOFOL @ 10MCG/KG, PRECEDEX IS ON SB, D5 @ 50ML/HR, TF @ 45ML/HR, SHABAZZ TO GRAVITY DRAINAGE W/ >1L OUT. TOES DISCOLORED, FEET COOL, ARMS WARM TO THE TOUCH, LUNGS COARSE, MIN. RETURN ON ETT SUCTION. TITI AREA REMAINS RED. SUPP GIVEN FOR NO BM. VITALS STABLE.
[2021-01-31 16:04] LABS: Anion Gap Unable to Calculate mmol/L (6-16); Blood Urea Nitrogen 38 mg/dL (8-24); Bun/Creatinine Ratio 63.7 (12.0-20.0); CO2, Blood 42 mmol/L (21-32); Calcium, Blood 8.8 mg/dL (8.5-10.1); Chloride, Blood 109 mmol/L (98-108); Glomerular Filtration Rate >60 (60-); Glucose, Blood 219 mg/dL (70-99); Potassium, Blood 3.9 mmol/L (3.5-5.5); Sodium, Blood 149 mmol/L (136-145)
--- NOTE | 2021-01-31 19:00 | NUR ---
ASSUME CARE NOTE: PATIENT INTUBATED & SEDATED. VENT SETTING: R-24 PC-16 PEEP-10 FIO2-65%. PROPOFOL, PRECEDEX, & D5W INFUSING. PATIENT WITHDRAWS TO PAIN. COUGH & GAG INTACT. HR STABLE. SBP >160, WILL ASSESS IF PRN BP RX REQUIRED. SHABAZZ DRAINING CLEAR DARK YELLOW URINE TO GRAVITY. TF INFUSING AT GOAL VIA OG. SKIN WARM & DRY W/ BILAT HEEL REDNESS. PICC SITE CLEAN, DRY, & INTACT. UPDATED PATIENT'S OVER THE PHONE. SEE SHIFT ASSESSMENT FOR FURTHER DETAILS.
[2021-01-31 19:31] LABS: Hematocrit 33.5 % (37.0-53.0); Hemoglobin 9.6 g/dL (13.5-17.5); Mean Corpuscular HGB 31.5 pg (26.0-34.0); Mean Corpuscular HGB Conc 28.7 g/dL (31.5-36.5); Mean Corpuscular Volume 110 fL (80-100); Mean Platelet Volume 12.3 fL (9.1-12.4); Platelet Count 135 K/mm3 (150-400); RDW Coefficient Variation 14.3 % (11.7-14.2); RDW Standard Deviation 56.7 fL (35.1-46.3); Red Blood Cell Count 3.05 M/mm3 (4.30-5.90)
[2021-02-01 04:11] LABS: BASOPHILS ABSOLUTE AUTO 0.05 K/mm3 (0.00-0.23); BASOPHILS PERCENT AUTO 0 % (0-2); EOSINOPHILS PERCENT AUTO 1 % (0-6); Hematocrit 32.2 % (37.0-53.0); Hemoglobin 9.4 g/dL (13.5-17.5); IMMATURE GRAN ABSOLUTE AUTO 0.38 K/mm3 (0.00-0.10); IMMATURE GRAN PERCENT AUTO 3 % (0-1); LYMPHOCYTES ABSOLUTE AUTO 0.52 K/mm3 (0.84-5.20); LYMPHOCYTES PERCENT AUTO 4 % (21-46); MONOCYTES ABSOLUTE AUTO 0.64 K/mm3 (0.16-1.47); MONOCYTES PERCENT AUTO 5 % (4-13); Mean Corpuscular HGB 31.5 pg (26.0-34.0); Mean Corpuscular HGB Conc 29.2 g/dL (31.5-36.5); Mean Corpuscular Volume 108 fL (80-100); Mean Platelet Volume 12.4 fL (9.1-12.4); NEUTROPHILS ABSOLUTE AUTO 10.93 K/mm3 (1.96-9.15); NEUTROPHILS PERCENT AUTO 87 % (41-73); NRBC ABSOLUTE 0.02 K/mm3 (0.00-0.02); NRBC Auto 0.2 /100 WBC (0.0-0.2); Platelet Count 140 K/mm3 (150-400); RDW Coefficient Variation 14.5 % (11.7-14.2); RDW Standard Deviation 55.8 fL (35.1-46.3); Red Blood Cell Count 2.98 M/mm3 (4.30-5.90); White Blood Cell Count 12.62 K/mm3 (4.00-11.30)
[2021-02-01 04:38] LABS: Albumin, Blood 1.7 g/dL (3.4-5.0); Anion Gap Unable to Calculate mmol/L (6-16); Blood Urea Nitrogen 35 mg/dL (8-24); Bun/Creatinine Ratio 65.5 (12.0-20.0); CO2, Blood 40 mmol/L (21-32); Calcium, Blood 8.8 mg/dL (8.5-10.1); Chloride, Blood 110 mmol/L (98-108); Creatinine, Blood 0.53 mg/dL (0.60-1.20); Glomerular Filtration Rate >60 (60-); Glucose, Blood 136 mg/dL (70-99); Phosphorus, Blood 1.7 mg/dL (2.5-4.9); Potassium, Blood 3.7 mmol/L (3.5-5.5); Sodium, Blood 148 mmol/L (136-145); Triglycerides 228 mg/dL (30-160)
--- NOTE | 2021-02-01 04:58 | NUR ---
SEDATION VACATION PLACED PROPOFOL & PRECEDEX ON STANDBY FOR 10 MINUTES. PATIENT ONLY OPENS EYES TO PAIN BUT DOES NOT TRACK. HE DOES NOT FOLLOW ANY COMMANDS. SEDATION RESTARTED.
--- NOTE | 2021-02-01 05:30 | NUR ---
RESPIRATORY UPDATE SEVERAL TIMES DURING THE SHIFT, PATIENT DESATS TO MID-80'S. AFTER GIVING 100% FIO2 AND SUCTIONING, PATIENT EVENTUALLY RECOVERS. HOWEVER, FOR THE LAST 30 MINUTES, PATIENT HAS NOT COVERED DEPITE TROUBLESHOOTING. SPOKE WITH RT WHO AGREES TO INCREASE FIO2 TO 75%. AFTER 5 MINUTES, PATIENT IS NOW SATING 93%.
--- NOTE | 2021-02-01 06:11 | NUR ---
END OF SHIFT SUMMARY: PATIENT REMAINS INTUBATED & SEDATED. VENT SETTINGS: AC R: 24 PC:16 PEEP: 10 FIO2:75% AND IS CURRENTLY SATING 96%. PROPOFOL, PRECEDEX, & D5W INFUSING. PATIENT CONTINUES TO WITHDRAW TO PAIN BUT DOES NOT OPEN EYES OR FOLLOW COMMANDS. HE BECOMES AGITATED WHEN STIMULATED OR TURNED AND BECOMES HYPERTENSIVE. HR AND BP CURRENTLY STABLE. TF STILL RUNNING AT GOAL VIA OG TUBE. SHABAZZ CONTINUES TO DRAIN DARK YELLOW CLEAR URINE AND PATIENT DID NOT HAVE A BM THIS SHIFT. WILL UPDATE ONCOMING RN WHEN AVAILABLE.
--- NOTE | 2021-02-01 07:15 | NUR ---
ASSUMPTION OF CARE: PT INTUBATED AND SEDATED, PROPOFOL AND PRECEDEX GTT INFUSING. D5W AND POTASSIUM PHOSPAHTE INFUSING. PICC SITE C/D/I, ADEQUATE FLUSH. PT DOES NOT WITHDRAW TO PAINFUL STIMULUS AT THIS TIME. TF UNFUSING AT GOAL RATE VIA OG, MINIMAL RESIDUAL NOTED. VSS AT THIS TIME. NO GAG NOTED DURING ORAL CARE. PT COUGHED THROUGHOUT REPOSITIONING AND BEDBATH AT START OF SHIFT, O2 SATURATION DROPPED TO LOW 80s. AFTER TURNING COMPLETED, O2 SATURATION RECOVERED QUICKLY TO >90%.
--- NOTE | 2021-02-01 09:49 | NUR ---
PROPOFOL OFF AT 0815, PT REMAINS COMPLIANT WITH VENT AND APPEARS AT EASE. NO RESPONSE TO PAINFUL STIMULUS, GAG IS NOW NOTED WITH SUCTIONING.
--- NOTE | 2021-02-01 13:14 | NUR ---
PT'S SON AT BEDSIDE, UPDATE PROVIDED AND QUESTIONS ANSWERED TO SATISFACTION.
--- NOTE | 2021-02-01 14:35 | NUR ---
ALL SEDATION OFF SINCE 1322, PT HAS GAG RESPONSE WITH DEEP SUCTIONING, WILL HAVE MINIMAL RESPONSE TO PAINFUL STIMULUS AT THIS TIME, DOES NOT OPEN EYES WITH STIMULUS. DR. VILLA AWARE.
--- NOTE | 2021-02-01 17:31 | NUR ---
SHIFT SUMMARY NO ACUTE EVENTS THIS SHIFT, PT TOLERATING VENT WITH NO SEDATION AT THIS TIME. PT RESPONDS WITH GAG RESPONSE AND COUGH WITH DEEP SUCTIONING. MINIMAL SECRETIONS NOTED. MINIMAL RESPONSE TO PAINFUL STIMULUS AT TIMES, PT WILL AT TIMES1 OPEN EYES. NO ATTEMPT TO MOVE EXTREMITIES NOTED. DR. VILLA AWARE PT IS NOT ON SEDATION FOR LATER PART OF SHIFT UNTIL NOW. VENT SETTINGS AC 24, PC 16, PEEP 14 AND FIO2 75%. D5W RUNNING PER ORDERS, INSULIN COVERAGE GIVEN ONCE THIS SHIFT. TF RUNNING AT GOAL RATE OF 50. PT BECAME INCREASINGLY HYPERTENSIVE THROUGH SHIFT, HYDRALAZINE GIVEN PER EMAR, AND DR. VILLA ORDERED ONE TIME 40 MG LASIX. SHABAZZ CONTINUED TO DRAIN TO GRAVITY, CLEAR OTILIO. NO BM THIS SHIFT. REDNESS NOTED ON COCCYX, MEPILEX APPLIED.
--- NOTE | 2021-02-01 19:00 | NUR ---
ASSUME CARE NOTE: PATIENT INTUBATED & SEDATED. VENT SETTINGS: AC/R:24/PC:16/PEEP:14/FIO2:75%. D5W 50ML/HR INFUSING. PATIENT DOES NOT OPEN EYES, WITHDRAW TO PAINFUL STIMULI, OR HAVE A GAG REFLEX. COUGH INTACT. SCANT ETT SECRETIONS. HR RUNNING IN LOW 100'S & BP STABLE. SHABAZZ DRAINING DARK YELLOW URING TO GRAVITY. PIVOT 1.5 RUNNING 50ML/HR AT GOAL WITH 250ML Q6HR H2O FLUSH. SKIN WARM & DRY. BLISTER NOTED AROUND GLUTEAL CLEFT; FOAM DRESSING CLEAN, DRY, & INTACT. UNABLE TO PHOTOGRAPH BECAUSE CAMERA IS NOT WORKING. PICC DRESSING CLEAN, DRY, & INTACT. SEE SHIFT ASSESSMENT FOR FURTHER DETAILS.
--- NOTE | 2021-02-01 23:32 | NUR ---
UPDATE: CARDIAC PATIENT'S HR SUDDENLY WENT FROM HIGH 90'S-LOW 100'S TO SUSTAINING 160'S. APPEARS LIKE SVT ON MONITOR. GAVE PRN LABETALOL AND HR IS CURRENTLY 75.
[2021-02-02 04:18] LABS: Hematocrit 31.2 % (37.0-53.0); Hemoglobin 9.2 g/dL (13.5-17.5); Mean Corpuscular HGB 31.7 pg (26.0-34.0); Mean Corpuscular HGB Conc 29.5 g/dL (31.5-36.5); Mean Corpuscular Volume 108 fL (80-100); Mean Platelet Volume 12.2 fL (9.1-12.4); NRBC ABSOLUTE 0.04 K/mm3 (0.00-0.02); NRBC Auto 0.3 /100 WBC (0.0-0.2); Platelet Count 175 K/mm3 (150-400); RDW Coefficient Variation 14.9 % (11.7-14.2); RDW Standard Deviation 58.4 fL (35.1-46.3); White Blood Cell Count 11.88 K/mm3 (4.00-11.30)
[2021-02-02 04:35] LABS: PCO2 Arterial 89.7 mmHg (35-45); pH Blood Arterial 7.27 (7.35-7.45)
[2021-02-02 04:55] LABS: BAND PERCENT MAN 3 % (0-8); BASOPHILS PERCENT MAN 0 % (0-2); EOSINOPHILS PERCENT MAN 0 % (0-6); LYMPHOCYTES ABSOLUTE MAN 0.59 K/mm3 (0.84-5.20); LYMPHOCYTES PERCENT MAN 5 % (21-46); METAMYELOCYTE ABSOLUTE MAN 0.11 K/mm3 (0.00-0.00); METAMYELOCYTE PERCENT MAN 1 % (0-0); MONOCYTES ABSOLUTE MAN 0.11 K/mm3 (0.16-1.47); MONOCYTES PERCENT MAN 1 % (4-13); MYELOCYTE ABSOLUTE MAN 0.35 K/mm3 (0.00-0.00); MYELOCYTE PERCENT MAN 3 % (0-0); NEUTROPHILS ABSOLUTE MAN 10.69 K/mm3 (1.96-9.15); SEG NEUTROPHILS PERCENT MAN 87 % (41-73); TOTAL CELLS COUNTED 100
[2021-02-02 05:18] LABS: Alanine Aminotransfer (ALT/SGP 73 U/L (12-78); Albumin, Blood 1.8 g/dL (3.4-5.0); Albumin/Globulin Ratio 0.4 (0.8-1.8); Alk Phos 98 U/L (50-136); Anion Gap 0 mmol/L (6-16); Aspartate Aminotrans (AST/SGOT 38 U/L (12-37); Bilirubin, Total 0.6 mg/dL (0.1-1.0); Blood Urea Nitrogen 37 mg/dL (8-24); Bun/Creatinine Ratio 60.2 (12.0-20.0); CO2, Blood 41 mmol/L (21-32); Calcium, Blood 8.6 mg/dL (8.5-10.1); Chloride, Blood 104 mmol/L (98-108); Creatinine, Blood 0.62 mg/dL (0.60-1.20); Globulin, Blood 4.2 g/dL (2.2-4.0); Glomerular Filtration Rate >60 (60-); Glucose, Blood 105 mg/dL (70-99); Magnesium, Blood 2.7 mg/dL (1.6-2.4); Phosphorus, Blood 1.9 mg/dL (2.5-4.9); Sodium, Blood 145 mmol/L (136-145)
--- NOTE | 2021-02-02 06:53 | NUR ---
END OF SHIFT SUMMARY: PATIENT REMAINS INTUBATED AND SEDATED. VENT SETTINGS: AC/R:24/PC:16/PEEP:14/FIO2:80%. CXR SHOWS LEFT PNEUMO AND CRITICAL ABG RESULTS RELAYED TO DR. VILLA, WHO STATES HE WILL BE COMING IN AROUND 7AM. PATIENT WILL OPEN EYES TO PAIN, GRIMACE WITH ORAL CARE, AND BITE DOWN ON THE ETT WITH SUCTION. DOES NOT RESPOND TO NOXIOUS STIMULI OR MOVE ANY EXTREMITIES. COUGH INTACT BUT GAG IS INTERMITTENT. SEDATION OFF ALL SHIFT. HR & BP STABLE. SHABAZZ CONTINUES TO DRAIN GOOD OUTPUT TO GRAVITY. TUBE FEEDS OFF SINCE MIDNIGHT FOR POSSIBLE TRACH TODAY. NO BM THIS SHIFT. PHOTOGRAPHS TAKE OF WOUND ON PENIS AND SACRUM. PHOSP REPLACED PER ELECTROLYTE PROTOCOL. WILL REPORT TO ONCOMING RN WHEN AVAILABLE.
[2021-02-02 09:32] LABS: Automated BF RBC Count 0.018 M/mm3 (0-0); Automated BF WBC Count 3.544 K/mm3 (0-999); Body Fluid WBC Count 3544 /mm3 (0-999); RBC Count, Body Fluid 18000 /mm3 (0-0)
--- NOTE | 2021-02-02 09:38 | NUR ---
Care Assumed 0700- chest tube placement Pt intubated and not sedated on any medications. Pt opens eyes spontaneously but not tracking or following commands. Coughing or no gag present. Vent settings: FIELD ACCOUNT MANAGER 24, PC 16, PEEP of 14, FIO2 80% Vent settings changed to FIELD ACCOUNT MANAGER 24 PC 16, PEEP OF 10, FIO2 85% after chest tube placement. Sedated with Propofol GTT 30 MCG/KG/MIN, during chest tube placement, placed on SB after procedure. TF restarted per Dr. Dent, Pivot 1.5 @ 20 ml/hr. VSS. NSR. Chavira in place. Chest tube to continuous suction, tidaling present, ~400 ml of light nelly output.
[2021-02-02 09:52] LABS: Glucose, Body Fluid 116 mg/dL; Lactate Dehydrogenase, Body Fl 369 U/L
[2021-02-02 10:02] LABS: Total Cell Count, Body Fluid 100
[2021-02-02 10:03] LABS: Appearance, Body Fluid Hazy (Clear); Color, Body Fluid Amber (None-Yellow)
--- NOTE | 2021-02-02 16:49 | NUR ---
AFIB and family phone call Patient had episode of AFIB, Max HR 180's, from 1528 to 1538. HR reduced to 90's and NSR after event. SBP 150's. Pt not waking or responding to noxious stumuli. Cough present. Dr. Dent made aware of AFIB. Spoke to patients daughter via phone and Dr. Dent updated daughter on poor prognosis. Daughter appears to understand. Patients son at bedside earlier today.
[2021-02-02 17:37] LABS: Phosphorus, Blood 2.9 mg/dL (2.5-4.9)
--- NOTE | 2021-02-02 18:02 | NUR ---
Shift Summary Vent settings: MANAGER FRONT OFFICE /PEEP OF 10, FIO2 80%, SPO2 92%. Currently on no sedation, opening eyes spontanously but not tracking or following commands. Cough present but no gag or response to noxious stumli. Chest tube in place, left anterior, 725 ml of serosanguinous output. TF restarted, currently at 40 ml/hr, PIVOT 1.5, will advance to goal. One event of AFIB, see previous note, otherwise pt remains in NSR. BP stable. Spoke to patients daughter and updated on current care.
--- NOTE | 2021-02-02 19:28 | NUR ---
REPORT RECEIVED-CARE ASSUMED-PLACED CALL TO DR. CHRISTIANSON-NA LEVEL THIS AM 145-MD ORDER STOP D5 INFUSION-ORDER PLACED-INFUSION STOPPED. PT HAS A CUFF LEAK-RT NOTIFIED. NO OTER MEDS INFUSING AT THIS TIME-NS TKO. CONTINUE ASSESSMENTS AND CARE.
--- NOTE | 2021-02-02 22:20 | NUR ---
PT RR >30, [id number], INCREASED WOB- ALL SEDATION IS OFF-2 MG OF ATIVAN GIVEN NOW.CONTINUE ASSESSMENT.
--- NOTE | 2021-02-02 22:36 | NUR ---
POST ATIVAN 2 MG IV-RR 20-26, SBP 118. IMPROVED WOB.
--- NOTE | 2021-02-03 00:18 | NUR ---
PT RR INCREASED AGAIN TO > 30, SBP 150, PT GUPPY BREATHING ON THE VENT, INCREASED WOB NOTED. DISCUSSED WITH FEATHER MIXER-RESTART LOW DOSE PROPOFOL ORDERED ON JUL. CONTINUE TO ASSESS.
[2021-02-03 03:44] LABS: Hematocrit 31.4 % (37.0-53.0); Mean Corpuscular HGB Conc 28.7 g/dL (31.5-36.5); Mean Corpuscular Volume 108 fL (80-100); Platelet Count 169 K/mm3 (150-400); RDW Standard Deviation 57.7 fL (35.1-46.3); White Blood Cell Count 11.12 K/mm3 (4.00-11.30)
[2021-02-03 04:03] LABS: Lactate Dehydrogenase (Ld),Bld 265 U/L (100-240); Magnesium, Blood 2.9 mg/dL (1.6-2.4)
[2021-02-03 04:06] LABS: Anion Gap Unable to Calculate mmol/L (6-16); Blood Urea Nitrogen 36 mg/dL (8-24); CO2, Blood 42 mmol/L (21-32); Calcium, Blood 8.5 mg/dL (8.5-10.1); Chloride, Blood 103 mmol/L (98-108); Creatinine, Blood 0.59 mg/dL (0.60-1.20); Glomerular Filtration Rate >60 (60-); Glucose, Blood 164 mg/dL (70-99); Phosphorus, Blood 2.3 mg/dL (2.5-4.9); Potassium, Blood 4.5 mmol/L (3.5-5.5); Sodium, Blood 144 mmol/L (136-145)
[2021-02-03 04:09] LABS: BAND PERCENT MAN 3 % (0-8); BASOPHILS ABSOLUTE MAN 0.11 K/mm3 (0.00-0.23); BASOPHILS PERCENT MAN 1 % (0-2); EOSINOPHILS PERCENT MAN 0 % (0-6); LYMPHOCYTES ABSOLUTE MAN 0.11 K/mm3 (0.84-5.20); LYMPHOCYTES PERCENT MAN 1 % (21-46); METAMYELOCYTE ABSOLUTE MAN 0.11 K/mm3 (0.00-0.00); METAMYELOCYTE PERCENT MAN 1 % (0-0); MONOCYTES ABSOLUTE MAN 0.44 K/mm3 (0.16-1.47); MONOCYTES PERCENT MAN 4 % (4-13); MYELOCYTE ABSOLUTE MAN 0.22 K/mm3 (0.00-0.00); MYELOCYTE PERCENT MAN 2 % (0-0); NEUTROPHILS ABSOLUTE MAN 10.11 K/mm3 (1.96-9.15); SEG NEUTROPHILS PERCENT MAN 88 % (41-73); TOTAL CELLS COUNTED 100
--- NOTE | 2021-02-03 05:52 | NUR ---
DECREASED TV, INCREASED RR>30, SATS 92%, BS: DECREASED T/O-? TUBE PLACEMENT-CXR 03-1-MH-TUBE 6 CM ABOVE EDUARDO. -RT CALLED TO ROOM TO ASSESS PT-NO CHANGES- ATIVAN GIVEN- NO CHANGES-DISCUSSED WITH NARROW FABRICS WEAVER. CONTINUE ASSESSMENT AND CARE.
--- NOTE | 2021-02-03 06:08 | NUR ---
END OF SHIFT NOTE PROPOFOL ON RATE 20MG/KG/MIN, RR 25-35 T/O THE NIGHT, SATS REMAINS > 90%. ATIVAN GIVEN X 2 OVERNIGHT WITH THE ATTEMPT TO DECREASE GUPPY BREATHING AND DECREASE WOB- DISCUSSED WITH LITHOSTRIPPER. PT CURRENTLY ON AC/PC-16 RATE 24-75%-PEEP10. BS: DECREASED T/O. CHESH TUBE IN PLACE LEFT UPPER CHEST TO SXN-POSITIVE TIDELING-NO AIRLEAK NOTED-DRAINED 140ML OVERNIGHT. SHABAZZ IN PLACE WITH 900ML DARK URINE OUT. AM CXR DONE-RESULTS PENDING. CONTINUE ASSESSMENTS AND CARE TILL REPORT OFF TO ONCOMING SHIFT RN.
--- NOTE | 2021-02-03 08:26 | NUR ---
Care Assumed 0700 Pt intubated and sedated. Propofol placed on SB. Vent settings: AC 24, PC 16/10, FIO2 75%. No cough or gag present. Not responding to noxious stumli. RR 29-32, Tidal volume 340's. HR 90's-110's. PVC's and NSR. BP stable. Chest tube in place with 50 ml of serosanguineous output since start of shift. Chavira in place with nelly clear output (150's).
--- NOTE | 2021-02-03 16:00 | NUR ---
CT of HEAD Pt to CT at around 1445, RT at bedside. Patients daughter at bedside as well. Transfered back successfully.
--- NOTE | 2021-02-03 18:29 | NUR ---
Shift Summary Recieved call from provider in regards to CT of head results. Dr. Dent to call daughter and update. Phos replaced per protocol. Vent settings unchanged. Pt remains on no sedation. Slight grimace during bedbath but otherwise not following commands or tracking. Pupils 6 mm, equal, round, and brisk. Chest tube remains in place with 200 output during shift. TF @ goal, BT hypoactive. Chavira in place, with nelly clear output. VSS. NSR HR 90's with PVC's. Will report to oncoming shift.
--- NOTE | 2021-02-03 19:17 | NUR ---
REPORT RECEIVED-CARE ASSUMED- PT ON VENT A/C RATE 24, PC 16, 75%, PEEP 10. PT RR 28-32, VE 11.8, WITH TV'S 420-435. BS: COURSE AIRATION BILAT UPPER-DECREASED T/O. ET-TUBE 25 @ GUM. SXN WITH STRONG COUGH-NO SECREATIONS, ORAL CARE-MOD AMT SECREATIONS- POSITIVE GAG. CHEST TUBE IN PLACE-TO SXN-NO AIRLEAK NOTED-POSITIVE TIDELING NOTED. CONTINUE ASSESSMENT AND CARE.
--- NOTE | 2021-02-03 23:39 | NUR ---
pt with increased bp(see flowsheet)-hydrolazine given 10 mg x 1-continue to assess. increased rr 35-40. sxn: large amts white creamy secreations. bs: course bilat upper, decreased bases, crackles left mid-lower. pt remians off sedation per md request. continue assessment and care
--- NOTE | 2021-02-04 00:48 | NUR ---
NOTIFIED DR. VILLA- PT HAS ELEVATED BP, RR, APPEARS INCREASED WOB. START PROPOFOL OVERNIGHT. IF BP DOES NOT IMPROVE GIVE LABETALOL ORDERED. CONTINUE ASSESSMENT AND CARRE.
--- NOTE | 2021-02-04 01:27 | NUR ---
MD NOTIFICATION DR. CHRISTIANSON NOTIFIED-PT WITH INCREASED HR-AFIB RVR ON MOITOR RATE 130-160. MD ORDER CARDIZEM 10MG TO BE GIVEN IN APROX 10 MIN IF HR DOES NOT SLOW.
--- NOTE | 2021-02-04 01:43 | NUR ---
pt converted back into sr/st rate 98-101 without rx.
--- NOTE | 2021-02-04 01:59 | NUR ---
RR REMAINS INCREASED 44-FENT PUSH GIVEN. CONTINUE TO ASSESS.
--- NOTE | 2021-02-04 02:10 | NUR ---
IMPROVED-POST FENT PUSH- RR 24-HR 91 BP 157/74. CONTINUE ASSESSMENT AND CARE.
[2021-02-04 04:29] LABS: Hematocrit 30.2 % (37.0-53.0); Hemoglobin 8.9 g/dL (13.5-17.5); Mean Corpuscular HGB 31.6 pg (26.0-34.0); Mean Corpuscular HGB Conc 29.5 g/dL (31.5-36.5); Mean Corpuscular Volume 107 fL (80-100); NRBC ABSOLUTE 0.03 K/mm3 (0.00-0.02); NRBC Auto 0.3 /100 WBC (0.0-0.2); Platelet Count 186 K/mm3 (150-400); RDW Standard Deviation 57.1 fL (35.1-46.3); Red Blood Cell Count 2.82 M/mm3 (4.30-5.90); White Blood Cell Count 11.94 K/mm3 (4.00-11.30)
[2021-02-04 04:48] LABS: Magnesium, Blood 2.9 mg/dL (1.6-2.4)
[2021-02-04 04:51] LABS: Anion Gap Unable to Calculate mmol/L (6-16); Blood Urea Nitrogen 39 mg/dL (8-24); Bun/Creatinine Ratio 66.7 (12.0-20.0); CO2, Blood 44 mmol/L (21-32); Calcium, Blood 8.6 mg/dL (8.5-10.1); Chloride, Blood 101 mmol/L (98-108); Creatinine, Blood 0.59 mg/dL (0.60-1.20); Glomerular Filtration Rate >60 (60-); Glucose, Blood 136 mg/dL (70-99); Phosphorus, Blood 2.1 mg/dL (2.5-4.9); Sodium, Blood 144 mmol/L (136-145)
[2021-02-04 05:05] LABS: BAND PERCENT MAN 7 % (0-8); BASOPHILS PERCENT MAN 0 % (0-2); EOSINOPHILS ABSOLUTE MAN 0.11 K/mm3 (0.00-0.68); EOSINOPHILS PERCENT MAN 1 % (0-6); LYMPHOCYTES ABSOLUTE MAN 0.47 K/mm3 (0.84-5.20); LYMPHOCYTES PERCENT MAN 4 % (21-46); MONOCYTES ABSOLUTE MAN 0.71 K/mm3 (0.16-1.47); MONOCYTES PERCENT MAN 6 % (4-13); MYELOCYTE ABSOLUTE MAN 0.35 K/mm3 (0.00-0.00); MYELOCYTE PERCENT MAN 3 % (0-0); NEUTROPHILS ABSOLUTE MAN 10.26 K/mm3 (1.96-9.15); SEG NEUTROPHILS PERCENT MAN 79 % (41-73); TOTAL CELLS COUNTED 100
--- NOTE | 2021-02-04 19:12 | NUR ---
The patient remains on the ventilator. Sedation vacation attempted today results in respiratory distress. Sedatation was turned back on to enhance comfort.
[2021-02-05 03:37] LABS: Hematocrit 29.3 % (37.0-53.0); Hemoglobin 8.4 g/dL (13.5-17.5); Mean Corpuscular HGB 31.2 pg (26.0-34.0); Mean Corpuscular HGB Conc 28.7 g/dL (31.5-36.5); Mean Corpuscular Volume 109 fL (80-100); Mean Platelet Volume 11.5 fL (9.1-12.4); NRBC ABSOLUTE 0.06 K/mm3 (0.00-0.02); NRBC Auto 0.6 /100 WBC (0.0-0.2); Platelet Count 180 K/mm3 (150-400); RDW Coefficient Variation 15.4 % (11.7-14.2); RDW Standard Deviation 59.7 fL (35.1-46.3); Red Blood Cell Count 2.69 M/mm3 (4.30-5.90); White Blood Cell Count 9.58 K/mm3 (4.00-11.30)
[2021-02-05 03:52] LABS: Blood Urea Nitrogen 52 mg/dL (8-24); Bun/Creatinine Ratio 68.8 (12.0-20.0); Calcium, Blood 8.8 mg/dL (8.5-10.1); Chloride, Blood 100 mmol/L (98-108); Creatinine, Blood 0.76 mg/dL (0.60-1.20); Glomerular Filtration Rate >60 (60-); Glucose, Blood 124 mg/dL (70-99); Magnesium, Blood 3.2 mg/dL (1.6-2.4); Phosphorus, Blood 2.9 mg/dL (2.5-4.9); Potassium, Blood 4.6 mmol/L (3.5-5.5); Sodium, Blood 145 mmol/L (136-145)
[2021-02-05 04:21] LABS: Anion Gap Unable to Calculate mmol/L (6-16); CO2, Blood >45 mmol/L (21-32)
[2021-02-05 05:52] LABS: BAND PERCENT MAN 1 % (0-8); BASOPHILS PERCENT MAN 0 % (0-2); EOSINOPHILS ABSOLUTE MAN 0.09 K/mm3 (0.00-0.68); EOSINOPHILS PERCENT MAN 1 % (0-6); LYMPHOCYTES ABSOLUTE MAN 0.28 K/mm3 (0.84-5.20); LYMPHOCYTES PERCENT MAN 3 % (21-46); MONOCYTES ABSOLUTE MAN 0.47 K/mm3 (0.16-1.47); MONOCYTES PERCENT MAN 5 % (4-13); MYELOCYTE ABSOLUTE MAN 0.47 K/mm3 (0.00-0.00); MYELOCYTE PERCENT MAN 5 % (0-0); NEUTROPHILS ABSOLUTE MAN 8.23 K/mm3 (1.96-9.15); SEG NEUTROPHILS PERCENT MAN 85 % (41-73); TOTAL CELLS COUNTED 100
--- NOTE | 2021-02-05 06:56 | NUR ---
03:53 NOTIFIED OF CO2 > 45 BY LAB 04:05 X-RAY PERFORMED IN ROOM, PT SAT FORWARD VERY SLIGHTLY, MAYBE 5 DEGREES TO GET BACKBOARD IN AND OUT. 04:06 PT TACHYPNIC, LOW TIDAL VOLUMES (RR 50s, TV 220s,) GAVE 2MG IVP ATIVAN WITH NO RESPIRATORY RELIEF. CALLED RESPIRATORY THERAPY, RECOMMEND INCREASED SEDATION. 04:[address] WELSH, INFORMED OF LABS, RESPIRATORY STATUS, DESATURATING, PER DR WELSH NO VENT CHANGES, SEDATE FOR BETTER VENT SYNCHRONICITY. 04:14 INCREASED PROPFOL DRIP TO 40 MCG/KG/MIN, PT STILL ASYNCHRONYS: RR 50s, TV 220s 04:21 GAVE FENTANYL 100 MCG 04:23 HR 90S, RR NOW 20S, TIDAL VOLUMES 350s. 04:24 HR 106, BP 62/42 (58), DECREASED PROPFOL, REPOSITIONED PT TO ENSURE ACCURATE BP READING. PT NOW SYNCHRONIS WITH VENTILATOR. 04:26 BP 70/49 (55,) EXITED ROOM. 04:35 BP 63/36 (44,) HR STEADILY DECLINING NOW IN 40s. CONTINUED DECREASING PROPOFOL, HR VARIABLE, SINUS BRENDA, STRONG PULSE. DISCUSSED GIVING 1/2 AMP EPINEPHINE WITH METER AND SERVICE LINE INSPECTOR. 04:[address] WELSH AGAIN, OBTAINED ORDER FOR LEVOPHED. CALLED PHARMACY, "NEED MED STAT." 04:46 BACK IN ROOM, HR MAINTAINING MID 40s, SINUS BRENDA, BP NOT READING, SEARCHING FOR MANUAL BP CUFF. MANUALLY MONITORING PULSE AT THIS TIME, MAINTAINING HOWEVER THREADY. GAVE 1/2 AMP EPINEPHRINE. PLACED PACER PADS, BACKBOARD BEHIND PATIENT IN CASE OF NEED. 04:50 STARTED LEVOPHED DRIP @ 15 MG/MIN, STOPPED PROPOFOL 04:51 LOST PULSE; PULSELESS ELECTRICAL ACTIVITY. STARTED CPR. SEE CODE SHEET FOR EVENTS. 05:13 CALLED CODE. PT PASSED ONTO THE LORD @ 05:13 THIS AM AFTER 22 MINUTES OF CPR.
--- NOTE | 2021-02-05 09:19 | NUR ---
02/04/2021 at 1030: After returning to the patient's room from CT scan, the patient's tidal volumes were low (230's) and triggered ventilator alarm. Patient oxygen saturations decrease to 85%. Respiratory therapy and the budget analyst were notified. MD and RT enter the patient's room to examine the patient and chest tube. No abnormalities were discovered. Increased patient propofol from 20mcgs to 30mcgs. Patient was repositioned to left side and tidal volumes improved. 02/04/2021 at 1730: The patient has been on sedation vacation for one hour, per MD order. During sedation vacation, the patient's breathing pattern appears agonal and the ventilator is alarming that the tidal volumes are low. MD and RT are notified of new findings. MD orders to resume propofol drip. RT is arrives to the bedside. Approximately 10 minutes after resuming sedation, the patient appears calm and his breathing becomes more synchronous with the ventilator. No further deviation from the norm.
== END 2021-02-05 07:28 | DRG 870 ==
LOC: ER 15:36 → MEDS 23:28 → ERHOLD 23:28 → ICUW 23:28 → MEDS 01-11 00:50 → ICUW 01-17 08:50
PROVIDERS: Emergency Medicine Emergency Medical Services; Family Medicine; Internal Medicine; Internal Medicine Critical Care Medicine; Student in an Organized Health Care Education/Training Program; ADMIT Hospitalist
PROC: 3E0333Z Introduction of Anti-inflammatory into Peripheral Vein, Percutaneous Approach (ICD-10-PCS; principal; 2021-01-10)
PROC: 8E0ZXY6 Isolation (ICD-10-PCS; 2021-01-10)
PROC: XW033E5 Introduction of Remdesivir Anti-infective into Peripheral Vein, Percutaneous Approach, New Technology Group 5 (ICD-10-PCS; 2021-01-10)
PROC: 02HV33Z Insertion of Infusion Device into Superior Vena Cava, Percutaneous Approach (ICD-10-PCS; 2021-01-17)
PROC: 5A1221J Performance of Cardiac Output, Continuous, Automated (ICD-10-PCS; 2021-01-17)
PROC: 0BH17EZ Insertion of Endotracheal Airway into Trachea, Via Natural or Artificial Opening (ICD-10-PCS; 2021-01-17)
PROC: 3E043XZ Introduction of Vasopressor into Central Vein, Percutaneous Approach (ICD-10-PCS; 2021-01-17)
PROC: 5A1955Z Respiratory Ventilation, Greater than 96 Consecutive Hours (ICD-10-PCS; 2021-01-17)
PROC: 0W9B30Z Drainage of Left Pleural Cavity with Drainage Device, Percutaneous Approach (ICD-10-PCS; 2021-02-02)
DX: A41.9 Sepsis, unspecified organism (principal); R65.21 Severe sepsis with septic shock; J15.9 Unspecified bacterial pneumonia; U07.1 COVID-19; J12.82 Pneumonia due to coronavirus disease 2019; J96.01 Acute respiratory failure with hypoxia; J96.02 Acute respiratory failure with hypercapnia; G92.8 Other toxic encephalopathy; R40.20 Unspecified coma; I60.9 Nontraumatic subarachnoid hemorrhage, unspecified; E87.0 Hyperosmolality and hypernatremia; E87.2 Acidosis; J93.9 Pneumothorax, unspecified; I48.0 Paroxysmal atrial fibrillation; K21.9 Gastro-esophageal reflux disease without esophagitis; I46.9 Cardiac arrest, cause unspecified; E87.5 Hyperkalemia; E83.39 Other disorders of phosphorus metabolism; R73.9 Hyperglycemia, unspecified; T38.0X5A Adverse effect of glucocorticoids and synthetic analogues, initial encounter; I10 Essential (primary) hypertension; E86.0 Dehydration; D64.9 Anemia, unspecified; E66.9 Obesity, unspecified; Z98.890 Other specified postprocedural states; Z90.49 Acquired absence of other specified parts of digestive tract; Z99.81 Dependence on supplemental oxygen; Z78.1 Physical restraint status
CPT/HCPCS: 31500; 32551; 36415; 36556; 36569; 36600; 51702; 70450; 71045; 71260; 80048; 80053; 80069; 81001; 82550; 82728; 82803; 82945; 82947; 83615; 83735; 83880; 84100; 84145; 84157; 84295; 84478; 84484; 85025; 85027; 85379; 85610; 86140; 86141; 87040; 87070; 87205; 89051; 93005; 93010; 93306; 94002; 94003; 94640; 94760; 94762; 96365; 96366; 96372-59; 99285-25; A9270; C1751; C9113; J0360; J0456; J0696; J1100; J1120; J1650; J1815; J1940; J2060; J2543; J2704; J3010; J3370; J7030; J7040; J7050; J7060; J7070; Q9967

== ENCOUNTER → 2021-01-10 | Outpatient (CLI) | payer MEDICARE ==
[~2021-01-10] MED LIST: DEXA6 PO; Lisinopril-Hct1 EAC4 PO
[2021-01-10 13:57] LABS: BASOPHILS ABSOLUTE AUTO 0.03 K/mm3 (0.00-0.23); BASOPHILS PERCENT AUTO 0 % (0-2); Hematocrit 42.9 % (37.0-53.0); Hemoglobin 14.9 g/dL (13.5-17.5); LYMPHOCYTES ABSOLUTE AUTO 0.36 K/mm3 (0.84-5.20); LYMPHOCYTES PERCENT AUTO 3 % (21-46); MONOCYTES ABSOLUTE AUTO 0.36 K/mm3 (0.16-1.47); MONOCYTES PERCENT AUTO 3 % (4-13); Mean Corpuscular HGB 31.2 pg (26.0-34.0); Mean Corpuscular HGB Conc 34.7 g/dL (31.5-36.5); Mean Corpuscular Volume 90 fL (80-100); Mean Platelet Volume 10.9 fL (9.1-12.4); Platelet Count 308 K/mm3 (150-400); RDW Coefficient Variation 12.2 % (11.7-14.2); RDW Standard Deviation 40.4 fL (35.1-46.3); Red Blood Cell Count 4.77 M/mm3 (4.30-5.90); White Blood Cell Count 14.13 K/mm3 (4.00-11.30)
[2021-01-10 14:07] LABS: Alanine Aminotransfer (ALT/SGP 66 U/L (12-78); Albumin, Blood 3.2 g/dL (3.4-5.0); Albumin/Globulin Ratio 0.8 (0.8-1.8); Alk Phos 71 U/L (40-126); Anion Gap 10 mmol/L (6-16); Aspartate Aminotrans (AST/SGOT 41 U/L (12-37); Bilirubin, Total 0.8 mg/dL (0.1-1.0); Blood Urea Nitrogen 36 mg/dL (8-24); Bun/Creatinine Ratio 30.8 (12.0-20.0); CO2, Blood 26 mmol/L (21-32); Chloride, Blood 101 mmol/L (98-108); Creatinine, Blood 1.17 mg/dL (0.60-1.20); Globulin, Blood 4.2 g/dL (2.2-4.0); Glomerular Filtration Rate >60 (60-); Glucose, Blood 162 mg/dL (70-99); Potassium, Blood 3.9 mmol/L (3.5-5.5); Sodium, Blood 137 mmol/L (136-145); Total Protein, Blood 7.4 g/dL (6.4-8.2)
[2021-01-10 14:19] LABS: EOSINOPHILS ABSOLUTE AUTO 0.02 K/mm3 (0.00-0.68); EOSINOPHILS PERCENT AUTO 0 % (0-6); IMMATURE GRAN ABSOLUTE AUTO 0.23 K/mm3 (0.00-0.10); IMMATURE GRAN PERCENT AUTO 2 % (0-1); NEUTROPHILS ABSOLUTE AUTO 13.13 K/mm3 (1.96-9.15); NEUTROPHILS PERCENT AUTO 93 % (41-73)
== END | disposition home or self-care (01) ==
LOC: LAB 13:51 → LAB SHORT 13:51
PROVIDERS: Physician Assistant Surgical
DX: U07.1 COVID-19 (principal); R53.83 Other fatigue
CPT/HCPCS: 80053; 85025; 85379